=== PATIENT | female | born 1960 | race Caucasian/White ===

== ENCOUNTER → 2021-02-07 10:00 | Outpatient (CLI) | payer BC, SELFPAY ==
[2017-03-08 15:44] VITALS: BMI 28.3
--- NOTE | 2021-02-07 10:04 | RAD_ITS ---
STUDY: X-RAY - RIGHT SHOULDER REASON FOR EXAM: Female, 60 years old. Shoulder pain. TECHNIQUE: 4 view(s) of the shoulder. COMPARISON: None. FINDINGS: Mild generalized osteopenia. Mild arthrosis of the glenohumeral joint. Mild arthrosis of the AC joint. Normal acromion. Minimal sclerosis of the greater tuberosity of the humeral head. The soft tissue structures are unremarkable. Normal visualized pulmonary apex. RAD/Shoulder min 2 Views IMPRESSION: Osteopenia with osteoarthritic changes as described. No acute abnormality, periostitis or erosive changes. Electronically Signed: Jeff Holman MD at 10:30 EDT , Service support ,
== END ==
PROVIDERS: PCP Family Medicine; Referring Provider Family Medicine; Visit Provider Family Medicine
DX: M25.511 Pain in right shoulder (principal)
CPT/HCPCS: 73030

== ENCOUNTER 2021-03-21 11:30 | Outpatient (RCR) | payer BC, SELFPAY ==
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
--- NOTE | 2021-03-21 12:51 | HP.PTDCSUM ---
It has been my pleasure to treat KESHAV GREEN referred by Dr. Sourav James MD, with the diagnosis of OA for a total of 12 visit(s). Discharge Date: Please see the following information for a summary of their discharge status. Subjective: IT HAS DEFINATELY IMPROVED SINCE STARTING PT. PATIENT REPORTS SHE IS NOW ABLE TO REACH UP OVER HER STOVE TO GET THE SALT AND PEPPER AND SCRABLE EGGS WITH LESS PAIN. STATES DRIVING IS BETTER AND REACHING IN GENERAL. STATES SHE IS HAPPY WITH HER PROGRESS. STATES SHE CAN BATHE AND SHOWER NOW WITHOUT EXCRUTIATING PAIN. PATIENT REPORTS VACUUMING STILL CAUSES A LOT OF PAIN. ALSO HELPED LOWER A FURNACE OUT OF THE ATTIC YESTERDAY AND IT DIDN'T HURT. 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 SHE STATES SHE CAN'T DEAL WITH MORE MITESH'TS AT THIS TIME. STATES SHE WANTS TO CONTINUE WITH HER WIEGHTS AND BANDS AT HOME NOW. R Shoulder Pain Intensity (Out of 10): 0 % Improvement: 50 Objective/Function: UPON EXAM TODAY PATIENT DEMO'S INCREASED RIGHT SHLD GIRDLE STRENGTH FROM 3+/5 TO 4-/5 BUT STILL HAS INCREASED PAIN WITH TESTING ALL PLANES. SHE IS MAKING SLOW PROGRESS TOWARD ALL PT GOALS AND IS A GOOD CANDIDATE TO CONTINUE PT BASED ON PROGRESS MADE AND ROOM FOR FURTHER IMPROVEMENT BUT SHE STATES SHE CAN NOT FIT IT IN HER SCHEDULE AT THIS TIME AND WILL CONTINUE EX ON HER OWN. STATES SHE WILL CONTACT HER DOCTOR ABOUT PT AGAIN NEEDED. Goal 1:: DECREASE C/O R SHLD PAIN TO EASE ADL'S Goal Progress: Progressing Goal 2:: INCRASE PAINFREE ROM OF RIGHT UE TO EASE ADL'S Goal Progress: Progressing Goal 3:: INCREASE FUNCTIONAL STRENGTH OF RIGHT UE TO EASE ADL'S Goal Progress: Progressing Goal 4:: PATIENT WILL BE INDEP WITH A HEP FOR CONTINUED IMPROVEMENT ONCE FORMAL PHYSICAL THERAPY CONCLUDES Goal Progress: Progressing Plan: D/C TO HEP. If there are questions or concerns regarding this patient's physical therapy, please feel free to call me at [phone]. Thank you for the referral of this patient. Sincerely, Amee Marcus, PT, Cert MDT Balance/Gait/Functional tests - Balance/Special Test Scores Quick DASH Score: [phone]
== END 2021-03-21 19:00 | disposition home or self-care (01) ==
LOC: PT 11:30
PROVIDERS: PCP Family Medicine; Referring Provider Family Medicine; Visit Provider Family Medicine
DX: M19.90 Unspecified osteoarthritis, unspecified site (principal)
CPT/HCPCS: 97110; 97162; 97164

== ENCOUNTER → 2021-04-07 | Outpatient (CLI) | payer BC, SELFPAY | END | disposition home or self-care (01) | LOC: LABSPEC 16:41 | PROVIDERS: PCP Family Medicine; Visit Provider Family Medicine | DX: Z20.822 Contact with and (suspected) exposure to COVID-19 (principal) | CPT/HCPCS: 87635; U0005; U0003 ==

== ENCOUNTER → 2021-04-14 07:18 | Outpatient (CLI) | payer BC, SELFPAY ==
--- NOTE | 2021-04-14 07:20 | MRI_ITS ---
STUDY: MRI RIGHT SHOULDER REASON FOR EXAM: Right shoulder pain for approximately 2.5 years, decreased range of motion. TECHNIQUE: Standardized fat and water weighted pulse sequences were obtained in all 3 orthogonal planes. COMPARISON: Radiographs 02/07/2021. FINDINGS: There is mild supraspinatus tendinosis and a full-thickness tear of the distal anterior supraspinatus tendon (T2 coronal images 12, 13; T2 sagittal image 6) measuring approximately 1 cm in length and width. There is mild infraspinatus tendinosis (T2 coronal image 6) without discrete tendon tear. There is mild subscapularis tendinosis (T2 axial image 13) without discrete tendon tear. Normal teres minor tendon. Normal supraspinatus muscle. Normal infraspinatus muscle. Normal subscapularis muscle. Normal teres minor muscle. There is a small glenohumeral joint effusion. There is a small cyst in the lesser tuberosity. There is a tear with nonvisualization of the intracapsular long biceps tendon. There is tear/degeneration of the superior labrum (T2 coronal images 7-10). Normal capsulo- ligamentous complex. There is acromioclavicular arthrosis with mild hypertrophic changes (T2 sagittal image 17). There is a Type II morphology (curved), with a neutral orientation. There is a small volume of subacromial-subdeltoid bursal fluid. There is thickening of the coracoacromial ligament (T2 sagittal image 12). Normal deltoid muscle. Normal trapezius muscle. MRI/Upper Ext Joint Only(Routine) IMPRESSION: Full-thickness tear and mild tendinosis of the supraspinatus tendon. Mild infraspinatus and subscapularis tendinosis. Tear of the long biceps tendon. Tear/degeneration of the superior labrum. Acromioclavicular arthrosis. Thickening of the coracoacromial ligament. Glenohumeral joint and subacromial-subdeltoid bursal fluid. Electronically Signed: Harjit Carbajal MD at 11:44 EDT Tel , Service support ,
== END ==
PROVIDERS: PCP Family Medicine; Referring Provider Family Medicine; Visit Provider Family Medicine
DX: M25.511 Pain in right shoulder (principal)
CPT/HCPCS: 73221

== ENCOUNTER 2021-07-14 06:37 | Emergency (ER) | payer BC, SELFPAY ==
[2021-07-14 06:37] VITALS: BP 128/80; PULSE 88; RESP 16; TEMP 36.2; O2SAT 98; BMI 31.6
--- NOTE | 2021-07-14 06:58 | CT_ITS ---
STUDY: CT ABDOMEN AND PELVIS WITH CONTRAST REASON FOR EXAM: Female, 61 years old. Lower abdominal pain -- IV PO Contrast RADIATION DOSAGE (If Supplied By Facility): CTDIvol = ( 16.48 ) mGy, DLP = ( 977.32 ) mGycm TECHNIQUE: Transaxial images were obtained from the dome of the diaphragm to the symphysis pubis with oral contrast. Oral and amp; IV Gastrografin and amp; 100mL Isovue-370 was administered. Sagittal and coronal images were reconstructed. Individualized dose optimization techniques were used for this CT. COMPARISON: Comparison is made with prior examination dated 03/08/2017. FINDINGS: The visualized lung bases are unremarkable. The visualized portions of the heart are within normal limits. Normal liver. Normal gallbladder and extrahepatic biliary system. Normal spleen. Normal pancreas. Normal bilateral adrenal glands. Normal right kidney. Normal left kidney. Normal visualized stomach. Normal small intestine. There is diverticulosis, with thickening of the colon wall, and pericolonic inflammation changes consistent with mild degree of acute diverticulitis. The appendix is visualized and appears normal. There is scattered atherosclerotic calcification of the abdominal aorta, without a demonstrated aneurysm. Normal inferior vena cava. There is borderline retroperitoneal lymphadenopathy with enlarged nodes no greater than 10mm in the short axis diameter. Normal urinary bladder. Normal abdominal wall. Minimal anterolisthesis of L4 on L5 without spondylolysis. CT/Abdomen/Pelvis WITH Contrast IMPRESSION: Findings in keeping with noncomplicated acute sigmoid diverticulitis. Electronically Signed: Tavo Herrmann MD at 9:08 EST , Service support ,
--- NOTE | 2021-07-14 06:59 | ED.VIS.GI ---
HPI HPI - GI History of Present Illness Chief Complaint: Abd Pain Informant: patient and spouse/S.O. Narrative Narrative: 61-year-old female presents the emergency room with abdominal pain. Patient states she has not been able to have a bowel movement for the past several days and believes she has a bowel obstruction. She states that she has a hernia but is unsure where it is located. She notes nausea but no vomiting. She states she is not having any flatus. today. She reports being unable to sit up. She states she has a fever of 98 degrees because she is typically 95 degrees. PFSH PFSH Home Medications ciprofloxacin HCl 500 mg PO BID #20 tablet 07/14/21 [Rx Last Taken Unknown] hydrocodone-acetaminophen 1 tab PO Q6H PRN PRN 3 Days #12 tablet 07/14/21 [Rx Last Taken Unknown] metronidazole 500 mg PO Q8H #30 tab 07/14/21 [Rx Last Taken Unknown] ondansetron 4 mg PO Q6H PRN PRN #15 tab 07/14/21 [Rx Last Taken Unknown] Allergy/AdvReac Type Severity Reaction Status Date / Time aspirin Allergy Other Verified 07/14/21 06:41 meperidine HCl [From Demerol] Allergy Other Verified 07/14/21 06:41 Sulfa (Sulfonamide Allergy Hives Verified 07/14/21 06:41 Antibiotics) Surgical History (Updated 07/14/21 @ 07:[address] Jae Wagner DO) History of D&C Social History (Updated 07/14/21 @ 07:[address] Jae Wagner DO) Smoking Status: Current every day smoker tobacco type: cigarettes substance use type: does not use ROS ROS ED Constitutional Constitutional ED: Reports fever(s); Denies chills or weight loss Eyes Eyes: Denies change in vision or diplopia ENT ENT ED: Denies ear pain, rhinorrhea or sore throat Cardiovascular Cardiovascular: Denies chest pain, orthopnea, palpitations or racing heartbeat Respiratory/Chest Respiratory/Chest: Denies cough, dyspnea or orthopnea Gastrointestinal Gastrointestinal: Reports abdominal pain, constipation and nausea; Denies diarrhea or vomiting Genitourinary Genitourinary ED: Denies dysuria, hematuria or urinary frequency Musculoskeletal Musculoskeletal: Denies arthralgias or myalgias Integumentary Denies abscess or rash Neurologic Neurologic: Denies headache(s) or weakness Psychiatric Psychiatric: Denies anxiety, depression, suicidal ideation or suicidal thoughts Endocrine Endocrinology: Denies polydipsia, polyphagia or polyuria Allergic/Immunologic Allergic/Immunologic ED: Denies mouth swelling, tongue swelling or urticaria EXAM Physical Exam Const Vital Signs: 07/14/21 06:37 Temperature 97.1 F L Temperature Source Temporal Pulse Rate 88 Respiratory Rate 16 Blood Pressure 128/80 H Blood Pressure Mean 96 Pulse Ox 98 Oxygen Delivery Method Room Air Positive well nourished, well developed and obese General Appearance ED: well developed Nutritional Appearance: obese HEENT Reports normocephalic, head/scalp atraumatic, TM's clear and moist mucous membranes normocephalic and atraumatic Tympanic Membrane ED: Yes TM's clear Eyes PERRL and EOMs intact bilaterally Neck no lymphadenopathy, supple and no JVD Resp normal respiratory effort and clear to auscultation bilaterally Cardio regular rate, regular rhythm and no murmurs GI normal to inspection, nondistended, normoactive bowel sounds Auscultation: hypoactive bowel sounds Palpation: tender and guarding Back/Spine no CVA tenderness and normal ROM Extremity normal to inspection General Extremety ED: Negative for edema General Extremity: Negative for edema Neuro oriented x3 and CN's II-XII intact bilaterally Sensorium / Orientation: alert Motor Exam: strength 5/5 throughout Psych mental status grossly normal Mood & Affect: Negative for depressed or tearful Skin no rashes or lesions noted and no wounds MDM MDM MDM Narrative Medical decision making narrative: Patient is elevated white count 11.3. Lactic acid 1.7. Urinalysis with no overt infection. CT of the abdomen pelvis with oral and IV contrast revealed uncomplicated sigmoid diverticulitis. Patient has received morphine and Zofran as well as fluids. I will discharge her home with Cipro and Flagyl as well as [place] and Zofran. Return if worsening or concerns follow-up with primary care Lab Data Attestation: I reviewed the patient's lab results. Labs: Laboratory Results - last 24 hr 07/14/21 07/14/21 07/14/21 06:43 06:43 07:10 WBC 11.3 H RBC 4.78 Hgb 14.7 Hct 43.2 MCV 90.4 MCH 30.8 MCHC 34.0 RDW Std Deviation 40.9 RDW Coeff of Gumaro 12.4 Plt Count 252 MPV 10.3 Immature Gran % (Auto) 0.300 Neut % (Auto) 75.7 H Lymph % (Auto) 12.3 L [place] % (Auto) 10.9 H Eos % (Auto) 0.6 Baso % (Auto) 0.2 Absolute Neuts (auto) 8.6 H Absolute Lymphs (auto) 1.39 Nucleated RBC % 0 Sodium 136 Potassium 3.8 Chloride 100 Carbon Dioxide 27.0 Anion Gap 9 BUN 12 Creatinine 0.76 Estim Creat Clear Calc 66.28 Est GFR (MDRD) Af Amer 99 Est GFR (MDRD) Non-Af 82 BUN/Creatinine Ratio 15.8 Glucose 132 H Lactic Acid 1.7 Calcium 9.2 Total Bilirubin 0.70 AST 11 L ALT 19 Alkaline Phosphatase 90 Total Protein 7.6 Albumin 3.7 Globulin 3.9 Albumin/Globulin Ratio 0.9 Lipase 63 L Urine Color Urine Clarity Urine pH Ur Specific [place] Urine Protein Urine Glucose (UA) Urine Ketones Urine Occult Blood Urine Nitrite Urine Bilirubin Urine Urobilinogen Ur Leukocyte Esterase Urine RBC Urine WBC Ur Squamous Epith Cells Urine Bacteria Urine Mucus 07/14/21 07:26 WBC RBC Hgb Hct MCV MCH MCHC RDW Std Deviation RDW Coeff of [place] Plt Count MPV Immature Gran % (Auto) Neut % (Auto) Lymph % (Auto) [place] % (Auto) Eos % (Auto) Baso % (Auto) Absolute Neuts (auto) Absolute Lymphs (auto) Nucleated RBC % Sodium Potassium Chloride Carbon Dioxide Anion Gap BUN Creatinine Estim Creat Clear Calc Est GFR (MDRD) Af Amer Est GFR (MDRD) Non-Af BUN/Creatinine Ratio Glucose Lactic Acid Calcium Total Bilirubin AST ALT Alkaline Phosphatase Total Protein Albumin Globulin Albumin/Globulin Ratio Lipase Urine Color Yellow Urine Clarity Sl. Cloudy Urine pH 6.5 Ur Specific [place] 1.015 Urine Protein Negative Urine Glucose (UA) Normal Urine Ketones Negative Urine Occult Blood 10 H Urine Nitrite Negative Urine Bilirubin Negative Urine Urobilinogen Normal Ur Leukocyte Esterase Negative Urine RBC 0 SEEN Urine WBC 0-5 SEEN Ur Squamous Epith Cells 5-10 SEEN Urine Bacteria 1+ Urine Mucus RARE Radiography Diagnostic Testing: Clinical Impression(s) from Imaging Studies Abdomen/Pelvis CT 07/14/21 06:58 IMPRESSION: Findings in keeping with noncomplicated acute sigmoid diverticulitis. Electronically Signed: Tavo Herrmann MD at 9:08 EST , Service support , Discharge Plan Triage Chief Complaint: Abd Pain ED Provider: Jae Wagner Dx/Rx/DC Orders Clinical Impression: Diverticulitis of sigmoid colon Instructions: ED Diverticulitis Prescriptions: New hydrocodone-acetaminophen [hydrocodone-acetaminophen] 1 TABLET tablet 1 tab PO Q6H PRN PRN (Reason: Pain) 3 Days Qty: 12 RF: 0 metronidazole [metronidazole] 500 MG tablet 500 mg PO Q8H Qty: 30 RF: 0 ciprofloxacin HCl [ciprofloxacin HCl] 500 MG tablet 500 mg PO BID Qty: 20 RF: 0 ondansetron [ondansetron] 4 MG tablet 4 mg PO Q6H PRN PRN (Reason: Nausea) Qty: 15 RF: 0 Primary Care Provider: Sourav James Referrals: Sourav James MD [Primary Care Provider] - 1-2 Weeks Disposition Disposition: Home, Self Care
[2021-07-14 07:08] LABS: Absolute Lymphocyte Count 1.39 X10^3/uL (0.83-4.51); Absolute Neutrophil Count 8.6 X10^3/uL (2.0-7.7); Basophil# 0.02 X10^3/uL; Basophil% 0.2 % (0-1); Eosinophil# 0.07 X10^3/uL; Eosinophils% 0.6 % (0-5); Hematocrit 43.2 % (37-47); Hemoglobin 14.7 g/dL (12.0-15.0); Lymphocyte # 1.39 X10^3/ul (0.83-4.51); Lymphocyte % 12.3 % (19-41); Mean Corpuscular Hgb 30.8 pg (27.0-32.0); Mean Corpuscular Volume 90.4 fL (81-99); Mean Platelet Vol. 10.3 fl (6.2-12.0); Monocyte# 1.23 X10^3/uL; Monocyte% 10.9 % (0-10); NRBC Flagged by Analyzer 0 % (0-5); Neutrophil # 8.58 X10^3/uL (2.7-7.7); Neutrophil % 75.7 % (47-70); Platelet Count 252 K/mm3 (150-450); RBC Distribution Width CV 12.4 % (11.6-14.6); RBC Distribution Width SD 40.9 fl (35.1-43.9); Red Blood Count 4.78 M/mm3 (4.2-5.4); White Blood Count 11.3 K/mm3 (4.4-11.0)
[2021-07-14] MEDS: Morphine 4 MG/ML Syringe IV (07:19)
[2021-07-14] MEDS: Ondansetron 4 MG/2 ML Vial IV (07:19)
[2021-07-14] MEDS: 0.9% Normal Saline 1,000 ML 125 ML IV (07:19)
[2021-07-14 07:25] LABS: ALB/GLOB Ratio 0.9 RATIO (0.9-2.4); AST(SGOT) 11 U/L (15-37); Alanine Aminotransfer ALT/SGPT 19 U/L (13-56); Albumin, Serum 3.7 g/dL (3.2-5.0); Alkaline Phosphatase 90 U/L (45-117); Anion Gap 9 (5-15); BUN 12 mg/dL (7-18); BUN/Creat Ratio 15.8 RATIO (10-20); Calcium,Total 9.2 mg/dL (8.5-10.1); Chloride 100 mmol/L (98-107); Creatinine, Serum 0.76 mg/dL (0.55-1.02); EST Glomerular Filtration Rate 82 mL/min (>60); Est Glom Filt Rate - Afr Amer 99 mL/min (>60); Estimated Creatinine Clearance 66.28 ml/min; Globulin 3.9 g/dL (2.2-4.2); Glucose 132 mg/dL (74-106); Lipase 63 U/L (73-393); Potassium 3.8 mmol/L (3.5-5.1); Protein, Total 7.6 g/dL (6.4-8.2); Sodium Level 136 mmol/L (136-145)
[2021-07-14 07:38] LABS: Red Blood Cells-Urine 0 SEEN /hpf (0-5)
[2021-07-14 07:47] LABS: Lactic Acid 1.7 mmol/L (0.4-1.9)
[2021-07-14 08:09] LABS: Color, Urine Yellow (Yellow); Glucose, Dipstick Normal (Normal); Ketone-Dipstick Negative (Negative); Leukocyte Esterase-Dipstick Negative /ul (Negative); Nitrite-Dipstick Negative (Negative); Occult Blood-Urine 10 /ul (Negative); Protein-Dipstick Negative (Negative); Specific Gravity, Urine 1.015 (1.002-1.030); Urine Bilirubin Dipstick Negative (Negative); Urine Clarity Sl. Cloudy (Clear); Urine Urobilinogen Normal (Normal); Urine pH 6.5 (5.0 - 8.0)
[2021-07-14 08:21] LABS: Bacteria 1+ /hpf (None Seen); Mucous, Urine RARE /hpf (<or=2+); Squamous Epithelial Cells - UA 5-10 SEEN /hpf (5-10); White Blood Cells 0-5 SEEN /hpf (0-5)
[2021-07-14 10:30] VITALS: BP 128/74; PULSE 81; RESP 17; O2SAT 95
== END 2021-07-14 10:31 | disposition home or self-care (01) ==
PROVIDERS: Emergency Provider Emergency Medicine; PCP Family Medicine
DX: K57.32 Diverticulitis of large intestine without perforation or abscess without bleeding (principal); E66.9 Obesity, unspecified; F17.210 Nicotine dependence, cigarettes, uncomplicated
CPT/HCPCS: 74177; 80053; 81001; 83605; 83690; 85025; 96361; 96374; 96375; 99284; J7030; Q9967; A4216; J2405

== ENCOUNTER → 2021-07-28 15:26 | Outpatient (CLI) | payer BC, SELFPAY | PROVIDERS: PCP Family Medicine; Referring Provider Family Medicine; Visit Provider Family Medicine | DX: Z86.16 Personal history of COVID-19 (principal) | CPT/HCPCS: 36415; 86769 ==

== ENCOUNTER → 2023-01-02 | Outpatient (CLI) | payer BC, SELFPAY ==
--- NOTE | 2023-01-02 17:20 | RAD_ITS ---
STUDY: XR Ankle Min 3 Views REASON FOR EXAM: Female, 62 years old. ANKLE PAIN TECHNIQUE: XR Ankle Min 3 Views RIGHT COMPARISON: None. FINDINGS: Normal visualized distal tibia and fibula. Normal medial and lateral malleoli. Normal tibiotalar articulation and ankle mortise. The visualized subtalar, talonavicular, calcaneocuboid and tarsal articulations are normal. There is a plantar calcaneal spur. There is soft tissue swelling around the ankle. RAD/Ankle min 3 Views IMPRESSION: There is soft tissue swelling. Electronically Signed: Yimi Kumar MD at 17:58 EDT ,
== END | disposition home or self-care (01) ==
LOC: MTRAD 17:14
PROVIDERS: PCP Family Medicine; Referring Provider Physician Assistant Surgical; Visit Provider Physician Assistant Surgical
DX: S96.911A Strain of unspecified muscle and tendon at ankle and foot level, right foot, initial encounter (principal)
CPT/HCPCS: 73610

== ENCOUNTER 2023-10-04 18:45 | Emergency (ER) | payer BC, SELFPAY ==
[2023-10-04] VITALS (8 sets, daily range): BP systolic 111–142; BP diastolic 66–91; PULSE 83–113; RESP 17–27; TEMP 36.8–37.6; O2SAT 94–99; BMI 33.3
--- NOTE | 2023-10-04 18:59 | EKG12_ITS ---
Test Reason : cp Blood Pressure : / mmHG Vent. Rate : 085 BPM Atrial Rate : 085 BPM P-R Int : 152 ms QRS Dur : 078 ms QT Int : 354 ms P-R-T Axes : 037 050 046 degrees QTc Int : 421 ms Normal sinus rhythm Normal ECG Confirmed by KACY SMALLWOOD, MEGAN ([id number]), supervising editor news reel WALE [email or web address] ([id number]) on 10/05/2023 1:05:10 PM Referred By: Confirmed By:MEGAN WOODRUFF MD
--- NOTE | 2023-10-04 19:00 | ED.VIS.CHEST ---
HPI History of Present Illness Chief Complaint: Chest Pain Informant: patient Onset/Context/Timing Onset: Today Narrative Narrative: Patient presents secondary left-sided chest pain. She reports having cold-like symptoms for the last several weeks intermittently. This afternoon she developed pinching and squeezing pain under her left breast. She states she has had intermittent shortness of breath for the last several weeks. She denies any personal history of cardiac disease but does have family history. PFSH PFSH Home Medications ciprofloxacin HCl 500 mg tablet 500 mg PO BID #20 TABLETS 07/14/21 [Rx Last Taken Unknown] hydrocodone-acetaminophen 5-325mg 5mg-325mg 1 tab PO Q6H PRN PRN Pain 3 days #12 TABLETS 07/14/21 [Rx Last Taken Unknown] metronidazole 500 mg tablet 500 mg PO Q8H #30 tabs 07/14/21 [Rx Last Taken Unknown] ondansetron 4 mg disintegrating tablet 4 mg PO Q6H PRN PRN Nausea #15 tabs 07/14/21 [Rx Last Taken Unknown] prednisone 20 mg tablet 40 mg (2 x 20 mg) PO DAILY #8 tabs 10/04/23 [Rx Last Taken Unknown] Allergy/AdvReac Type Severity Reaction Status Date / Time aspirin Allergy Other Verified 10/04/23 18:46 meperidine HCl [From Demerol] Allergy Other Verified 10/04/23 18:46 Sulfa (Sulfonamide Allergy Hives Verified 10/04/23 18:46 Antibiotics) Surgical History History of D&C Social History Smoking Status: Current every day smoker tobacco type: cigarettes substance use type: does not use ROS ROS ED Constitutional Constitutional ED: Reports fever(s) and subjective; Denies chills Eyes Eyes: Denies change in vision or discharge from eye(s) ENT ENT ED: Denies discharge from eye(s), rhinorrhea or sore throat Cardiovascular Cardiovascular: Reports chest pain; Denies palpitations Respiratory/Chest Respiratory/Chest: Reports cough and dyspnea Gastrointestinal Gastrointestinal: Denies abdominal pain, nausea or vomiting Genitourinary Genitourinary ED: Denies dysuria Musculoskeletal Musculoskeletal: Denies back pain or extremity pain Integumentary Denies Abrasions or rash Neurologic Neurologic: Denies headache(s) or weakness Allergic/Immunologic Allergic/Immunologic ED: Denies lip swelling or urticaria EXAM Physical Exam Const Vital Signs: 10/04/23 18:46 10/04/23 18:54 10/04/23 18:49 Temperature 98.2 F 98.2 F Temperature Source Temporal Temporal Pulse Rate 92 92 Respiratory Rate 22 H 22 H Respiratory Effort Short of Breath Respiratory Pattern Tachypnea Blood Pressure 142/91 H 142/91 H Blood Pressure Mean 108 108 Pulse Ox 99 99 Oxygen Delivery Method Room Air Room Air 10/04/23 19:00 10/04/23 19:46 10/04/23 20:00 Temperature Temperature Source Pulse Rate 83 Respiratory Rate 18 Respiratory Effort Respiratory Pattern Blood Pressure 111/83 H Blood Pressure Mean 92 Pulse Ox 97 97 Oxygen Delivery Method Room Air Room Air Room Air 10/04/23 21:00 10/04/23 21:00 Temperature 99.3 F H Temperature Source Oral Pulse Rate 93 113 H Respiratory Rate 27 H 17 Respiratory Effort Respiratory Pattern Blood Pressure 125/70 H 125/70 H Blood Pressure Mean 88 88 Pulse Ox 94 96 Oxygen Delivery Method Room Air Room Air Positive well nourished and well developed General Appearance ED: well developed HEENT Reports moist mucous membranes Eyes EOMs intact bilaterally Chest Wall inspection of chest normal and palpation of chest normal Resp normal respiratory effort and clear to auscultation bilaterally Cardio regular rate and regular rhythm GI soft to palpation and non-tender Extremity normal to inspection Neuro oriented x3 Psych Mood & Affect: anxious Skin no rashes or lesions noted Heart Score History: Slightly/Non-Suspicious ECG: Normal Age: >45 - <65 years Risk Factors: No Risk Factors Troponin: </= Normal Limit Score: 1 MDM MDM MDM Narrative Medical decision making narrative: Patient placed on playground monitor. EKG obtained to evaluate for cardiac arrhythmia/ischemia. IV line initiated. Labwork obtained to evaluate for leukocytosis, anemia, and electrolyte derangement. Chest x-ray obtained to evaluate for acute lung pathology, cardiac size, or mediastinal abnormality. Swab for COVID, influenza, and RSV obtained. Patient does have an allergy to aspirin. She is given morphine and Zofran for pain. History & Record Review Discussion w/independent historian: Patient Lab Data Attestation: I reviewed the patient's lab results. Labs: Laboratory Results - last 24 hr 10/04/23 10/04/23 18:57 21:09 WBC 5.2 RBC 4.62 Hgb 13.9 Hct 42.1 MCV 91.1 MCH 30.1 MCHC 33.0 RDW Std Deviation 41.0 RDW Coeff of Gumaro 12.4 Plt Count 180 MPV 10.3 Immature Gran % (Auto) 0.800 Neut % (Auto) 78.7 H Lymph % (Auto) 7.[address] % (Auto) 11.9 H Eos % (Auto) 1.3 Baso % (Auto) 0.2 Absolute Neuts (auto) 4.1 Absolute Lymphs (auto) 0.37 L Nucleated RBC % 0 D-Dimer Quant (PE/DVT) 1.48 H* Sodium 136 Potassium 3.9 Chloride 105 Carbon Dioxide 27.0 Anion Gap 4 L BUN 15 Creatinine 0.68 Estim Creat Clear Calc 90.12 Est GFR (MDRD) Af Amer 112 Est GFR (MDRD) Non-Af 93 BUN/Creatinine Ratio 22.1 H Glucose 93 Calcium 9.4 Troponin I High Sens 3 5 Radiography Chest X-Ray - ED: 1 View, Read by ED Physician, Normal, Heart, Lungs, Mediastinum and No Infiltrates Diagnostic Testing: Clinical Impression(s) from Imaging Studies Chest X-Ray 10/04/23 19:14 IMPRESSION: No acute cardiopulmonary pathology Electronically Signed: Joe Ochoa MD at 19:40 EST , Chest CTA 10/04/23 19:53 IMPRESSION: ASHD without evidence for aortic aneurysm. No acute cardiopulmonary pathology. No evidence for pulmonary embolus Incidental finding of bilateral tiny thyroid nodules which may be better assessed with ultrasound if indicated Electronically Signed: Joe Ochoa MD at 20:29 EST , EKG Initial EKG: Attestation: I personally reviewed and interpreted this EKG as follows: Interpretation: Sinus Rhythm (Sinus 85 with no acute ischemia.) Treatment and Re-Evaluation :: CBC was normal white count 5.2 with a hemoglobin of 13.9. 78% neutrophils noted. Chemistry studies unremarkable. Troponin is normal at 3. D-dimer is elevated at 1.48. Swab for influenza and RSV is negative, however swab for COVID is positive. Portable chest x-ray per my interpretation feels no acute findings. Radiology interpretation reviewed and agrees. Given her elevated D-dimer, patient is sent for CTA of the chest. This reveals no evidence of pulmonary embolism. Patient initially declined morphine. At this time she will be given a dose of Toradol. 2-hour repeat troponin returns at 5 for a delta of 2. On repeat evaluation patient resting comfortably. She does have evidence of pleurisy with sharp chest pain worse with a deep breath. I will treat her with a short course of prednisone to help with pleuritic irritation. She will continue supportive care for her COVID. Discharge Plan Triage Chief Complaint: Chest Pain ED Provider: Peri Powell Dx/Rx/DC Orders Clinical Impression: COVID-19, Pleurisy Instructions: Coronavirus Disease 2019 (COVID-19): Overview, Coronavirus Disease 2019 (COVID-19): Caring for Yourself or Others, ED Pleurisy Prescriptions: New prednisone 20 mg tablet 40 mg PO DAILY Qty: 8 0RF No Action hydrocodone-acetaminophen [hydrocodone-acetaminophen] 1 TABLET tablet 1 tab PO Q6H PRN PRN (Reason: Pain) 3 Days Qty: 12 0RF metronidazole [metronidazole] 500 MG tablet 500 mg PO Q8H Qty: 30 0RF ciprofloxacin HCl [ciprofloxacin HCl] 500 MG tablet 500 mg PO BID Qty: 20 0RF ondansetron [ondansetron] 4 MG tablet 4 mg PO Q6H PRN PRN (Reason: Nausea) Qty: 15 0RF Primary Care Provider: Sourav James Referrals: Sourav James MD [Primary Care Provider] - 1-2 Weeks Disposition Disposition: Home, Self Care
[2023-10-04] MEDS: 0.9% Normal Saline (1000mL) 1,000 ML 150 ML IV (19:04)
[2023-10-04 19:10] LABS: Absolute Lymphocyte Count 0.37 X10^3/uL (0.83-4.51); Absolute Neutrophil Count 4.1 X10^3/uL (2.0-7.7); Basophil# 0.01 X10^3/uL; Basophil% 0.2 % (0-1); Eosinophil# 0.07 X10^3/uL; Eosinophils% 1.3 % (0-5); Hematocrit 42.1 % (37-47); Hemoglobin 13.9 g/dL (12.0-15.0); Lymphocyte # 0.37 X10^3/ul (0.83-4.51); Lymphocyte % 7.1 % (19-41); Mean Corpuscular Hgb 30.1 pg (27.0-32.0); Mean Corpuscular Volume 91.1 fL (81-99); Mean Platelet Vol. 10.3 fl (6.2-12.0); Monocyte# 0.62 X10^3/uL; Monocyte% 11.9 % (0-10); NRBC Flagged by Analyzer 0 % (0-5); Neutrophil # 4.11 X10^3/uL (2.7-7.7); Neutrophil % 78.7 % (47-70); POSITIVE DIFFERENTIAL YES; Platelet Count 180 K/mm3 (150-450); RBC Distribution Width CV 12.4 % (11.6-14.6); Red Blood Count 4.62 M/mm3 (4.2-5.4); White Blood Count 5.2 K/mm3 (4.4-11.0)
--- NOTE | 2023-10-04 19:14 | RAD_ITS ---
STUDY: X-RAY CHEST REASON FOR EXAM: Female, 63 years old. chest pain TECHNIQUE: AP portable COMPARISON: None. FINDINGS: The lungs are clear and expanded. There is no demonstrated pleural abnormality. Normal size heart. Normal mediastinum and adrianna. Normal visualized pulmonary arteries. Normal visualized aortic arch and descending thoracic aorta. Dorsal spine demonstrates mild degenerative change. Normal visualized ribs, clavicles, and shoulders. There is no demonstrated abnormality of the visualized soft tissue structures of the upper abdomen. RAD/Chest 1 View (Portable) IMPRESSION: No acute cardiopulmonary pathology Electronically Signed: Joe Ochoa MD at 19:40 EST ,
[2023-10-04 19:28] LABS: Anion Gap 4 (5-15); BUN 15 mg/dL (7-18); BUN/Creat Ratio 22.1 RATIO (10-20); Calcium,Total 9.4 mg/dL (8.5-10.1); Chloride 105 mmol/L (98-107); Creatinine, Serum 0.68 mg/dL (0.55-1.02); EST Glomerular Filtration Rate 93 mL/min (>60); Est Glom Filt Rate - Afr Amer 112 mL/min (>60); Estimated Creatinine Clearance 90.12 ml/min; Glucose 93 mg/dL (74-106); Potassium 3.9 mmol/L (3.5-5.1); Sodium Level 136 mmol/L (136-145); Troponin-I HS (w/2H Reflex) 3 pg/mL (3.0-54.0)
[2023-10-04 19:53] LABS: D-Dimer Quantitative (DVT/PE) 1.48 FEU/ug/m (0.27-0.49)
--- NOTE | 2023-10-04 19:53 | CT_ITS ---
STUDY: CTA CHEST REASON FOR EXAM: Female, 63 years old. CP, elevated d-dimer RADIATION DOSAGE (If Supplied By Facility): CTDIvol = ( 8.35 ) mGy, DLP = ( 304.31 ) mGycm TECHNIQUE: The examination was performed with the intravenous administration of IV 100mL [id number]-[id number]. Post-processing of the angiographic images was performed, with multiplanar reformation and 3D reconstruction. Individualized dose optimization techniques were used for this CT. COMPARISON: None. FINDINGS: Normal enhancement of the main pulmonary artery and right and left pulmonary arteries. Normal enhancement of the bilateral peripheral pulmonary arteries. There is no demonstrated pulmonary embolism. Mild atherosclerotic change of the aorta without evidence for aneurysm. There is no demonstrated aortic dissection. Normal heart and pericardium. There is mild multivessel coronary artery calcium Normal mediastinum. Normal hilar regions. Tiny bilateral thyroid nodules Normal visualized trachea and bronchi. The lungs are well expanded. Normal pulmonary parenchyma. Normal pleura. Small bilateral axillary nodes likely benign Dorsal spine demonstrates degenerative change Nonspecific fatty infiltrated liver CT/CTA Chest W/WO Contrast IMPRESSION: ASHD without evidence for aortic aneurysm. No acute cardiopulmonary pathology. No evidence for pulmonary embolus Incidental finding of bilateral tiny thyroid nodules which may be better assessed with ultrasound if indicated Electronically Signed: Joe Ochoa MD at 20:29 EST ,
[2023-10-04] MEDS: Ketorolac 15 MG/ML Vial IV (20:35)
[2023-10-04 21:07] LABS: Reflex Troponin-HS? (from REC) Y
[2023-10-04 21:33] LABS: Troponin-I HS 5 pg/mL (3.0-54.0)
[2023-10-04] MEDS: Acetaminophen 500 MG Tablet 1000 MG PO (22:06)
== END 2023-10-04 22:18 | disposition home or self-care (01) ==
PROVIDERS: Emergency Provider Emergency Medicine; PCP Family Medicine; Visit Provider Emergency Medicine
DX: U07.1 COVID-19 (principal); R09.1 Pleurisy; F17.210 Nicotine dependence, cigarettes, uncomplicated
CPT/HCPCS: 71045; 71275; 80048; 84484; 85025; 85379; 87631; 93005; 96361; 96374; 96375; 99284; J7030; Q9967; A4216; J2405

== ENCOUNTER → 2023-10-18 | Outpatient (CLI) | payer BC, SELFPAY ==
[2023-10-18 13:31] LABS: Cholesterol 196 mg/dL (200); High Density Lipoprotein 43 mg/dL; Triglycerides 127 mg/dL; Very Low Density Lipoprotein 25 mg/dL (5-40)
[2023-10-18 16:05] LABS: Hemoglobin A1c 5.7 % (3.8-5.6)
== END | disposition home or self-care (01) ==
LOC: MTLAB 09:36
PROVIDERS: PCP Family Medicine; Referring Provider Family Medicine; Visit Provider Family Medicine
DX: I70.90 Unspecified atherosclerosis (principal)
CPT/HCPCS: 36415; 80061; 83036

== ENCOUNTER → 2024-06-03 | Outpatient (CLI) | payer MEDICARE, SELFPAY ==
--- NOTE | 2024-06-03 13:03 | BI_ITS ---
MAMMOGRAPHY - BILATERAL SCREENING REASON FOR EXAM: Female, 64 years old. Routine annual screening examination. PERTINENT HISTORY: Aunt with breast cancer. Remote right excisional breast biopsy. TECHNIQUE: Digital bilateral breast gaye (3D mammographic acquisition) in the CC and MLO projections. 2-D mediolateral oblique (MLO) and craniocaudad (CC) views of both breasts were obtained. CAD: Full Field Digital Mammography with Computer Added Detection was performed. COMPARISON: Comparison is made with prior study June 03, 2015. FINDINGS: Breast Composition: There are scattered areas of fibroglandular density. There are no dominant masses or suspicious calcifications. Stable small benign-appearing bilateral axillary lymph nodes. No other significant abnormalities are identified. There has been no significant change since the prior study. BI/SCRN MAMM (CAD)W/GAYE BILAT IMPRESSION: Stable bilateral screening mammogram. Yearly follow-up mammogram recommended. (A) ASSESSMENT CATEGORY: BIRADS Category 2: Benign. A letter regarding these results will be sent to the patient by the facility within 30 days. Approximately 10% of breast cancers are not detected by mammography. A normal mammogram should not delay biopsy of a clinically suspicious abnormality. [id number] Electronically Signed: Tavo Herrmann MD at 14:13 EDT ,
--- NOTE | 2024-06-03 13:07 | BD_ITS ---
STUDY: DUAL ENERGY X-RAY ABSORPTIOMETRY / DXA REASON FOR EXAM: Female, 64 years old. [id number] TECHNIQUE: Bone Mineral Density (BMD) measurements of lumbar spine and bilateral hips were obtained. COMPARISON: Comparison is made with prior study June 03, 2015. FINDINGS: Lumbar Spine (L1-L4): g/cm2 (0.852) / T-score (-1.8) / Z-score (0.0) Findings are suggestive of osteopenia with a moderate fracture risk. Left Femur Total: g/cm2 (0.931) / T-score (-0.1) / Z-score (1.1) Left Femoral Neck: g/cm2 (0.741) / T-score (-1.0) / Z-score (0.5) Right Femur Total: g/cm2 (0.942) / T-score (0.0) / Z-score (1.2) Right Femoral Neck: g/cm2 (0.778) / T-score (-0.6) / Z-score (0.9) The T-Scores on the most recent prior examination were: Lumbar Spine (L1-L4): There has been worsening of bone density since the previous examination. Left Femur Total: which represents a worsening of 8.2%. Right Femur Total: which represents a worsening of 7.3%. BD/Dexa Bone Density Study IMPRESSION: The patient is considered osteopenic as outlined below according to World Atul Organization (WHO) criteria with a moderate fracture risk. There has been worsening of bone density since the previous examination. Reference Information: The T-score is the number of standard deviations above or below the standard which is normal for young adults at their peak bone mineral density. The World Health Organization (WHO) interprets the T-scores as follows: Above -1 Normal bone density Between -1 and -2.5 Osteopenia Equal to / or below -2.5 Osteoporosis As a practical clinical guideline, osteopenia may be graded as follows: Mild -1 through -1.5 Moderate -1.6 through -2.0 Severe -2.1 through -2.4 The Z-score is the number of standard deviations above or below age-matched controls. A Z-score of less than -1.5 would be considered abnormal. References: 1. NIH Osteoporosis and Related Bone Diseases www osteo.org 2. International Society for Clinical Densitometry www iscd.org 3. National Osteoporosis Foundation www nof.org Electronically Signed: Tavo Herrmann MD at 14:06 EDT ,
== END | disposition home or self-care (01) ==
LOC: OPBD 13:02
PROVIDERS: PCP Family Medicine; Referring Provider Family Medicine; Visit Provider Family Medicine
DX: Z12.31 Encounter for screening mammogram for malignant neoplasm of breast (principal); Z78.0 Asymptomatic menopausal state
CPT/HCPCS: 77063; 77067; 77080

== ENCOUNTER → 2025-05-06 | Outpatient (CLI) | payer MEDICARE, SELFPAY ==
--- OUTSIDE RECORDS SUMMARY | 2025-05-06 18:23 | XMS RPT_ITS | CCD ---
Author Organization [facility] Care Team Providers Care Frame Polisher Name Role Phone Dr. Sourav James Primary Care Provider Dr. Sourav James Referring Provider [phone] PRUDENCE Moody Attending Provider [phone] Sourav James Primary Care Unavailable Sourav James Attending Unavailable Sourav James Referring Unavailable Peri Powell Attending Unavailable Sourav James Primary Care Unavailable Sourav James Primary Care Unavailable Sourav James Attending Unavailable Sourav James Referring Unavailable Allergies Allergy Classification Reported Allergen(s) Allergy Type Date of Onset Reaction(s) Facility (3 sources) Aspirin Drug Allergy 3 [facility] (4 sources) Meperidine; Translations: [meperidine HCl] Drug Allergy 3 [facility] (3 sources) Sulfonamides (Antibiotic) Allergy to substance 3 [facility] (1 source) Aspirin Drug Allergy 4 [facility] (1 source) Sulfonamides (Antibiotic) Drug allergy (disorder) 4 [facility] Medications Current Medications Medication Drug Class(es) Dates Sig (Normalized) Sig (Original) acetaminophen 325 mg / HYDROcodone bitartrate 5 mg oral tablet (3 sources) Opioid Agonist Start: 07-14-2021 take 1 tablet by mouth every six hours as needed Hydrocodone-Acetam inophen Active 1 TABLET PO EVERY 6 HOURS NEEDED 12 July 14, 2021 ciprofloxacin 500 mg oral tablet (3 sources) Quinolone Antimicrobial Start: 07-14-2021 take 500 mg by mouth twice daily Ciprofloxacin Hcl Active 500 MG PO TWICE A DAY July 14, 2021 1:00am metroNIDAZOLE 500 mg oral tablet (3 sources) Nitroimidazole Antimicrobial Start: 07-14-2021 take 500 mg by mouth every eight hours Metronidazole Active 500 MG PO Q8H July 14, 2021 1:00am ondansetron 4 mg disintegrating oral tablet (3 sources) Serotonin-3 Receptor Antagonist Start: 07-14-2021 take 4 mg by mouth every six hours as needed Ondansetron Active 4 MG PO EVERY 6 HOURS NEEDED July 14, 2021 10:59am predniSONE 20 mg oral tablet (2 sources) Start: 10-04-2023 take 40 mg by mouth once daily Prednisone Active 40 MG PO DAILY October 04, 2023 1:00am Completed/Discontinued Medications Medication Drug Class(es) Dates Sig (Normalized) Sig (Original) methylPREDNISolone 4 mg oral tablet (3 sources) Corticosteroid Start: 3 End: 3 take 1 tablet by mouth once Methylprednisolone (Medrol (Gerardo)) 4 mg tablets,dose pack Discontinued 4 MG PO per package directions 31 01January 02, 2023 12:00am January 08, 2023 12:04am Problems Active Problems Problem Classification Problem Date Documented Da te Episodic/Chronic Diverticulosis and diverticulitis (3 sources) Diverticulitis of sigmoid colon; Translations: [Diverticulitis of large intestine without perforation or abscess without bleeding] 07-22-2021 Chronic Other screening for suspected conditions (not mental disorders or infectious disease) (1 source) Encounter for screening mammogram for malignant neoplasm of breast; Translations: [Encounter for screening mammogram for malignant neoplasm of breast] Onset: 06-27-2024 Episodic Peripheral and visceral atherosclerosis (1 source) Unspecified atherosclerosis; Translations: [Unspecified atherosclerosis] Onset: 10-23-2023 Chronic Pleurisy; pneumothorax; pulmonary collapse (2 sources) Pleurisy; Translations: [Pleurisy] 10-04-2023 Episodic Sprains and strains (4 sources) Strain of muscle and/or tendon of lower leg; Translations: [Strain of unspecified muscle and tendon at ankle and foot level, right foot, initial encounter] 01-02-2023 Episodic Viral infection (2 sources) Disease caused by 2019-nCoV; Translations: [COVID-19] 10-04-2023 Episodic Past or Other Problems Problem Classification Problem Date Documented Da te Episodic/Chronic Nonspecific chest pain (1 source) Chest pain, unspecified; Translations: [Chest pain, unspecified] Onset: 10-09-2023 Episodic Results Test Name Value Interpretation Reference Range Facility Dexa Bone Density Study Dexa Bone Density Study [facility] Imaging Services [address] [place], [place] [id number] Dexa Bone Density Study MR#: [id number] Acct: [id number] Name: KESHAV GREEN Rep #: [id number] : 1960 F 64 From: Tavo madden MD PCP: Dr. Sourav James MD Status: REG CLI Study: Dexa Bone Density Study Date of Exam: 06/03/24 Exam# [id number] Ordering Dr: Sourav James MD [id number] STUDY: DUAL ENERGY X-RAY ABSORPTIOMETRY / DXA REASON FOR EXAM: Female, 64 years old. [id number] TECHNIQUE: Bone Mineral Density (BMD) measurements of lumbar spine and bilateral hips were obtained. COMPARISON: Comparison is made with prior study June 03, 2015. FINDINGS: Lumbar Spine (L1-L4): g/cm2 (0.852) / T-score (-1.8) / Z-score (0.0) Findings are suggestive of osteopenia with a moderate fracture risk. Left Femur Total: g/cm2 (0.931) / T-score (-0.1) / Z-score (1.1) Left Femoral Neck: g/cm2 (0.741) / T-score (-1.0) / Z-score (0.5) Right Femur Total: g/cm2 (0.942) / T-score (0.0) / Z-score (1.2) Right Femoral Neck: g/cm2 (0.778) / T-score (-0.6) / Z-score (0.9) The T-Scores on the most recent prior examination were: Lumbar Spine (L1-L4): There has been worsening of bone density since the previous examination. Left Femur Total: which represents a worsening of 8.2%. Right Femur Total: which represents a worsening of 7.3%. BD/Dexa Bone Density Study IMPRESSION: The patient is considered osteopenic as outlined below according to World Atul Organization (WHO) criteria with a moderate fracture risk. There has been worsening of bone density since the previous examination. Reference Information: The T-score is the number of standard deviations above or below the standard which is normal for young adults at their peak bone mineral density. The World Health Organization (WHO) interprets the T-scores as follows: Above -1 Normal bone density Between -1 and -2.5 Osteopenia Equal to / or below -2.5 Osteoporosis As a practical clinical guideline, osteopenia may be graded as follows: Mild -1 through -1.5 Moderate -1.6 through -2.0 Severe -2.1 through -2.4 The Z-score is the number of standard deviations above or below age-matched controls. A Z-score of less than -1.5 would be considered abnormal. References: 1. NIH Osteoporosis and Related Bone Diseases www osteo.org 2. International Society for Clinical Densitometry www iscd.org 3. National Osteoporosis Foundation www nof.org Electronically Signed: Tavo Herrmann MD at 14:06 EDT Reading Location ID and State: [facility] / [place] , Service support , CC: Dr. Sourav James MD Decision Analyst: Signed Normal [facility] SCRN MAMM (CAD)W/GAYEHelen Silva n 06-03-2024 [facility]CRN M[facility] (CAD)[facility] Imaging Services [address] [place], [place] [address] SCRN MAMM (CAD)W/GAYE ARECHIGA MR#: [id number] Acct: [id number] Name: KESHAV GREEN BLANE Rep #: [id number] : 1960 F 64 From: Tavo madden MD PCP: Dr. Sourav James MD Status: [facility] Study: SCRN MAMM (CAD)W/GAYE BILAT Date of Exam: 05/14 10/06 Exam# [id number] Ordering Dr: Sourav James MD [id number] MAMMOGRAPHY - BILATERAL SCREENING REASON FOR EXAM: Female, 64 years old. Routine annual screening examination. PERTINENT HISTORY: Aunt with breast cancer. Remote right excisional breast biopsy. TECHNIQUE: Digital bilateral breast gaye (3D mammographic acquisition) in the CC and MLO projections. 2-D mediolateral oblique (MLO) and craniocaudad (CC) views of both breasts were obtained. CAD: Full Field Digital Mammography with Computer Added Detection was performed. COMPARISON: Comparison is made with prior study June 03, 2015. FINDINGS: Breast Composition: There are scattered areas of fibroglandular density. There are no dominant masses or suspicious calcifications. Stable small benign-appearing bilateral axillary lymph nodes. No other significant abnormalities are identified. There has been no significant change since the prior study. BI/SCRN MAMM (CAD)W/GAYE BILAT IMPRESSION: Stable bilateral screening mammogram. Yearly follow-up mammogram recommended. (A) ASSESSMENT CATEGORY: BIRADS Category 2: Benign. A letter regarding these results will be sent to the patient by the facility within 30 days. Approximately 10% of breast cancers are not detected by mammography. A normal mammogram should not delay biopsy of a clinically suspicious abnormality. [id number] Electronically Signed: Tavo Herrmann MD at 14:13 EDT , CC: Dr. Sourav James MD Decision Analyst: Signed Normal [facility] Basophil percentageOrdered B y: Sourav James on 10-18-2023 Cholesterol [Mass/Vol] 196 mg/dL <200 [facility] Comment on above: <200 mg/dL Desirable 200-240 mg/dL Borderline >240 mg/dL High Risk Triglyceride [Mass/Vol] 127 mg/dL <199 [facility] Comment on above: The drugs N-Acetylcy steine and Metamizole may falsely depress this assay.Serum Triglycerides Reference Interval Normal <150 mg/dL Borderline high 150 - 199 mg/dL High 200 - 499 mg/dL Very High > or = 500 mg/dL Hemoglobin A1con 10-18-2023 HbA1c (Bld) [Mass fraction] 5.7 % High 3.8-5.6 [facility] Comment on above: Order Comment: PLEAS E ADD ON TO BLOOD IN LAB, THANKS Result Comment: Norm al < 5.7 % Prediabetic 5.7 - 6.4 % Diabetic >or= 6.5 % Please note range changes. Performed By: #### L 500.4100, L501.9985 ####[facility] [address] [place], [address] Laboratory - Chemistry and C hemistry - challengeOrdered By: Sourav James on 10-18-2023 Cholesterol in HDL [Mass/Vol] 43 mg/dL >40 [facility] Comment on above: The drugs N-Acetylcy steine and Metamizole may falsely depress this assay. Reference Range HDL <40 mg/dL Low HDL Cholesterol HDL >or= 60 mg/dL High HDL Cholesterol Cholesterol in LDL [Mass/Vol] 128 mg/dL 0-130 [facility] Lipid Profileon 10-18-2023 Cholesterol [Mass/Vol] 196 mg/dL Normal 200 [facility] Comment on above: Result Comment: <200 mg/dL Desirable 200-240 mg/dL Borderline >240 mg/dL High Risk Performed By: #### L 500.4100, L501.9985 ####[facility] [address] [place], [address] Cholesterol in HDL [Mass/Vol] 43 mg/dL Normal [facility] Comment on above: Result Comment: The drugs N-Acetylcysteine and Metamizole may falsely depress this assay. Reference Range HDL <40 mg/dL Low HDL Cholesterol HDL >or= 60 mg/dL High HDL Cholesterol Performed By: #### L 500.4100, L501.9985 ####[facility] [address] [place], [address] Cholesterol in LDL [Mass/Vol] 128 mg/dL Normal 0-130 [facility] Comment on above: Performed By: #### L 500.4100, L501.9985 ####[facility] [address] [place], [address] Cholesterol in VLDL [Mass/Vol] 25 mg/dL Normal - [facility] Comment on above: Performed By: #### L 500.4100, L501.9985 ####[facility] [address] [place], [address] Triglyceride [Mass/Vol] 127 mg/dL Normal [facility] Comment on above: Result Comment: The drugs N-Acetylcysteine and Metamizole may falsely depress this assay. Serum Triglycerides Reference Interval Normal <150 mg/dL Borderline high 150 - 199 mg/dL High 200 - 499 mg/dL Very High > or = 500 mg/dL Performed By: #### L 500.4100, L501.9985 ####[facility] [address] [place], [address] No Panel InformationOrdered By: Sourav James on 10-18-2023 VLDL Cholesterol 25 mg/dL -40 [facility] Whole blood hemoglobin A1c/t otal hemoglobin ratio (mass fraction)Ordered By: Sourav James on 10-18-2023 HbA1c (Bld) [Mass fraction] 5.7 % 3.8-5.6 [facility] Comment on above: Normal < 5.7 % Predi abetic 5.7 - 6.4 % Diabetic >or= 6.5 % Please note range changes. 12 Lead EKGon 10-04-2023 12 Lead EKG [facility] Cardiovascular Services [address] [place] [address] 12 Lead EKG 10/04/23 1852 MR#: [id number] Acct: [id number] Name: KESHAV GREEN Rep #: [id number] : 1960 63 From: Luarent Woodruff MD Attending Dr: Status: DEP ER Ordering Dr: Peri Powell MD Date: 10/04/23 Location: ED Sex: F C Admitted: Test Reason : cp Blood Pressure : / mmHG Vent. Rate : 085 BPM Atrial Rate : 085 BPM P-R Int : 152 ms QRS Dur : 078 ms QT Int : 354 ms P-R-T Axes : 037 050 046 degrees QTc Int : 421 ms Normal sinus rhythm Normal ECG Confirmed by KACY SMALLWOOD, LAURENT ([id number]), editor house organ WALE SIMPSON ([id number]) on 10/05/2023 1:05:10 PM Referred By: Confirmed By:LAURENT WOODRUFF MD 10/05/23 1305 Date Laurent Woodruff MD CC: Dr. Peri Powell MD; Dr. Sourav James MD Signed Normal [facility] Absolute lymphocyte countOrd ered By: Peri Powell on 10-04-2023 Lymphocytes Auto (Unsp spec) [#/Vol] 0.37 10*3/uL 0.83-4.51 [facility] Automated lymphocyte count a s percentage of total leukocytesOrdered By: Peri Powell on 10-04-2023 Lymphocytes/100 WBC Auto (Unsp spec) 7.1 % 19-41 [facility] Basic Metabolic Profile (BMP )on 10-04-2023 BUN/CRE 22.1 RATIO High 10-20 [facility] Comment on above: Order Comment: 1 Y Performed By: #### L 501.2022, L300.8000, L100.0100, L500.2500 #### [facility] [address] [place], [address] CA,Total 9.4 mg/dL Normal 8.5-10.1 [facility] Comment on above: Order Comment: 1 Y Performed By: #### L 501.5425, L300.8000, L100.0100, L500.2500 #### [facility] [address] [place], [address] Chloride [Moles/Vol] 105 mmol/L Normal 98-[address] [facility] Comment on above: Order Comment: 1 Y Performed By: #### L 501.5425, L300.8000, L100.0100, L500.2500 #### [facility] [address] [place], [address] CO2 [Moles/Vol] 27.0 mmol/L Normal 21.0-32.0 [facility] Comment on above: Order Comment: 1 Y Performed By: #### L 501.5425, L300.8000, L100.0100, L500.2500 #### [facility] [address] [place], [address] Creatinine [Mass/Vol] 0.68 mg/dL Normal 0.55-1.02 [facility] Comment on above: Order Comment: 1 Y Result Comment: The validity of the calculated GFR GFRAA in patients over 70 years has not been determined. Clinical correlation is essential. Performed By: #### L 501.5425, L300.8000, L100.0100, L500.2500 #### [facility] [address] [place], [address] ECRCL 90.12 ml/min Normal [facility] Comment on above: Order Comment: 1 Y Performed By: #### L 501.5425, L300.8000, L100.0100, L500.2500 #### [facility] [address] [place], [address] EST GFR - AA 112 mL/min Normal >60 [facility] Comment on above: Order Comment: 1 Y Result Comment: Afri can Danish GFR Calc Performed By: #### L 501.5425, L300.8000, L100.0100, L500.2500 #### [facility] [address] [place], [address] GAP 4 Low 5-15 [facility] Comment on above: Order Comment: 1 Y Performed By: #### L 501.5425, L300.8000, L100.0100, L500.2500 #### [facility] [address] [place], [address] GFR/1.73 sq M.predicted among non-blacks MDRD (S/P/Bld) [Vol rate/Area] 93 mL/min/{1.73_m2} Normal >60 [facility] Comment on above: Order Comment: 1 Y Result Comment: Non- GFR Calc Performed By: #### L 501.5425, L300.8000, L100.0100, L500.2500 #### [facility] [address] [place], [address] Glucose [Mass/Vol] 93 mg/dL Normal 74-106 [facility] Comment on above: Order Comment: 1 Y Performed By: #### L 501.5425, L300.8000, L100.0100, L500.2500 #### [facility] [address] [place], [address] Potassium [Moles/Vol] 3.9 mmol/L Normal 3.5-5.1 [facility] Comment on above: Order Comment: 1 Y Performed By: #### L 501.5425, L300.8000, L100.0100, L500.2500 #### [facility] [address] [place], [address] Sodium [Moles/Vol] 136 mmol/L Normal 136-145 [facility] Comment on above: Order Comment: 1 Y Performed By: #### L 501.5425, L300.8000, L100.0100, L500.2500 #### [facility] [address] [place], [address] Urea nitrogen [Mass/Vol] 15 mg/dL Normal 7-18 [facility] Comment on above: Order Comment: 1 Y Performed By: #### L 501.5425, L300.8000, L100.0100, L500.2500 #### [facility] [address] [place], [place], [address] Basophil percentageOrdered B y: Peri Powell on 10-04-2023 Basophils/100 WBC (Bld) 0.2 % 0-1 [facility] Chloride [Moles/Vol] 105 mmol/L 98-[address] [facility] Eosinophils/100 WBC (Bld) 1.3 % 0-5 [facility] Glucose [Mass/Vol] 93 mg/dL 74-106 [facility] Hemoglobin (Bld) [Mass/Vol] 13.9 g/dL 12.0-15.0 [facility] Monocytes/100 WBC (Bld) 11.9 % 0-10 [facility] Neutrophils (Bld) [#/Vol] 4.1 10*3/uL 2.0-7.7 [facility] Neutrophils/100 WBC (Bld) 78.7 % 47-70 [facility] Potassium [Moles/Vol] 3.9 mmol/L 3.5-5.1 [facility] Sodium [Moles/Vol] 136 mmol/L 136-145 [facility] WBC (Bld) [#/Vol] 5.2 10*3/uL 4.4-11.0 [facility] CBC W/Diff, Automatedon - Absolute Lymph 0.37 X10 3/uL Low 0.83-4.51 [facility] Comment on above: Performed By: #### L 501.5425, L300.8000, L100.0100, L500.2500 #### [facility] [address] [place], [address] Absolute Neut 4.1 X10 3/uL Normal 2.0-7.7 [facility] Comment on above: Performed By: #### L 501.5425, L300.8000, L100.0100, L500.2500 #### [facility] [address] [place], [address] Basophils/100 WBC (Bld) 0.2 % Normal 0-1 [facility] Comment on above: Performed By: #### L 501.5425, L300.8000, L100.0100, L500.2500 #### [facility] [address] [place], [address] Eosinophils/100 WBC (Bld) 1.3 % Normal 0-5 [facility] Comment on above: Performed By: #### L 501.5425, L300.8000, L100.0100, L500.2500 #### [facility] [address] [place], [address] Erythrocyte distribution width (RBC) [Ratio] 12.4 % Normal 11.6-14.6 [facility] Comment on above: Performed By: #### L 501.5425, L300.8000, L100.0100, L500.2500 #### [facility] [address] [place], [address] Hematocrit (Bld) [Volume fraction] 42.1 % Normal 37-47 [facility] Comment on above: Performed By: #### L 501.5425, L300.8000, L100.0100, L500.2500 #### [facility] [address] [place], [address] Hemoglobin (Bld) [Mass/Vol] 13.9 g/dL Normal 12.0-15.0 [facility] Comment on above: Performed By: #### L 501.5425, L300.8000, L100.0100, L500.2500 #### [facility] [address] [place], [address] IG% 0.800 Normal 0.0-0.9 [facility] Comment on above: Result Comment: IG% - Immature Granulocytes (promyelocytes, myelocytes and metamyelocytes) > 1% indicates that a LEFT SHIFT is Present. Performed By: #### L 501.5425, L300.8000, L100.0100, L500.2500 #### [facility] [address] [place], [address] Lymphocytes/100 WBC (Bld) 7.1 % Low 19-41 [facility] Comment on above: Performed By: #### L 501.5425, L300.8000, L100.0100, L500.2500 #### [facility] [address] [place], [address] MCH (RBC) [Entitic mass] 30.1 pg Normal 27.0-32.0 [facility] Comment on above: Performed By: #### L 501.5425, L300.8000, L100.0100, L500.2500 #### [facility] [address] [place], [address] MCHC (RBC) [Mass/Vol] 33.0 g/dL Normal 32-36 [facility] Comment on above: Performed By: #### L 501.5425, L300.8000, L100.0100, L500.2500 #### [facility] [address] [place], [address] MCV (RBC) [Entitic vol] 91.1 fL Normal 81-99 [facility] Comment on above: Performed By: #### L 501.5425, L300.8000, L100.0100, L500.2500 #### [facility] [address] [place], [address] Monocytes/100 WBC (Bld) 11.9 % High 0-10 [facility] Comment on above: Performed By: #### L 501.5425, L300.8000, L100.0100, L500.2500 #### [facility] [address] [place], [address] Neutrophils/100 WBC (Bld) 78.7 % High 47-70 [facility] Comment on above: Performed By: #### L 501.5425, L300.8000, L100.0100, L500.2500 #### [facility] [address] [place], [address] Nucleated RBC (Bld) [#/Vol] 0 10*3/uL Normal 0-5 [facility] Comment on above: Performed By: #### L 501.5425, L300.8000, L100.0100, L500.2500 #### [facility] [address] [place], [address] Platelet mean volume (Bld) [Entitic vol] 10.3 fL Normal 6.2-12.0 [facility] Comment on above: Performed By: #### L 501.5425, L300.8000, L100.0100, L500.2500 #### [facility] [address] [place], [address] Platelets (Bld) [#/Vol] 180 10*3/uL Normal 150-450 [facility] Comment on above: Performed By: #### L 501.5425, L300.8000, L100.0100, L500.2500 #### [facility] [address] [place], [address] RBC (Bld) [#/Vol] 4.62 10*6/uL Normal 4.2-5.4 [facility] Comment on above: Performed By: #### L 501.5425, L300.8000, L100.0100, L500.2500 #### [facility] [address] [place], [address] RDW SD 41.0 fl Normal 35.1-43.9 [facility] Comment on above: Performed By: #### L 501.5425, L300.8000, L100.0100, L500.2500 #### [facility] [address] [place], [address] WBC (Bld) [#/Vol] 5.2 10*3/uL Normal 4.4-11.0 [facility] Comment on above: Performed By: #### L 501.5425, L300.8000, L100.0100, L500.2500 #### [facility] [address] [place], [address] CTA Chest W/WO Contraston CTA Chest W/WO Contrast [facility] Imaging Services [address] [place] [address] CTA Chest W/WO Contrast MR#: [id number] Acct: [id number] Name: KESHAV GREEN Rep #: [id number] : 1960 F 63 From: Joe Ochoa MD PCP: Dr. Sourav James MD Status: [facility] Study: CTA Chest W/WO Contrast Date of Exam: 10/04/23 Exam# [id number] Ordering Dr: Peri Powell MD [id number] STUDY: CTA CHEST REASON FOR EXAM: Female, 63 years old. CP, elevated d-dimer RADIATION DOSAGE (If Supplied By Facility): CTDIvol = ( 8.35 ) mGy, DLP = ( 304.31 ) mGycm TECHNIQUE: The examination was performed with the intravenous administration of IV 100mL Isovue-370. Post-processing of the angiographic images was performed, with multiplanar reformation and 3D reconstruction. Individualized dose optimization techniques were used for this CT. COMPARISON: None. FINDINGS: Normal enhancement of the main pulmonary artery and right and left pulmonary arteries. Normal enhancement of the bilateral peripheral pulmonary arteries. There is no demonstrated pulmonary embolism. Mild atherosclerotic change of the aorta without evidence for aneurysm. There is no demonstrated aortic dissection. Normal heart and pericardium. There is mild multivessel coronary artery calcium Normal mediastinum. Normal hilar regions. Tiny bilateral thyroid nodules Normal visualized trachea and bronchi. The lungs are well expanded. Normal pulmonary parenchyma. Normal pleura. Small bilateral axillary nodes likely benign Dorsal spine demonstrates degenerative change Nonspecific fatty infiltrated liver CT/CTA Chest W/WO Contrast IMPRESSION: ASHD without evidence for aortic aneurysm. No acute cardiopulmonary pathology. No evidence for pulmonary embolus Incidental finding of bilateral tiny thyroid nodules which may be better assessed with ultrasound if indicated Electronically Signed: Joe Ochoa MD at 20:29 [facility] [[email or web address] Reading Location ID and State: [facility] / [place] Tel , Service support , CC: Dr. Peri Powell MD; Dr. Sourav James MD Decision Analyst: Signed Normal [facility] Chest 1 View (Portable)on Chest 1 View (Portable) [facility] Imaging Services [address] [place] [address] Chest 1 View (Portable) MR#: [id number] Acct: [id number] Name: KESHAV GREEN Rep #: [id number] : 1960 F 63 From: Joe Ochoa MD PCP: Dr. Sourav James MD Status: REG ER Study: Chest 1 View (Portable) Date of Exam: 10/04/23 Exam# [id number] Ordering Dr: Peri Powell MD [id number] STUDY: X-RAY CHEST REASON FOR EXAM: Female, 63 years old. chest pain TECHNIQUE: AP portable COMPARISON: None. FINDINGS: The lungs are clear and expanded. There is no demonstrated pleural abnormality. Normal size heart. Normal mediastinum and adrianna. Normal visualized pulmonary arteries. Normal visualized aortic arch and descending thoracic aorta. Dorsal spine demonstrates mild degenerative change. Normal visualized ribs, clavicles, and shoulders. There is no demonstrated abnormality of the visualized soft tissue structures of the upper abdomen. RAD/Chest 1 View (Portable) IMPRESSION: No acute cardiopulmonary pathology Electronically Signed: Joe Ochoa MD at 19:40 EST Reading Location ID and State: [facility] / [place] Tel , Service support , CC: Dr. Peri Powell MD; Dr. Sourav James MD Decision Analyst: Signed Normal [facility] D-Dimer Quantitative (DVT/PE )on 10-04-2023 D-DIMER QUANT 1.48 FEU/ug/m Invalid Interpretation Code 0.27-0.49 [facility] Comment on above: Result Comment: D-Di luis ELEVATED (>0.49): Additional studies and clinical assessments are indicated to conclude diagnosis of: Deep Vein Thrombosis (DVT) or Pulmonary Embolism (PE) CRITICAL VALUE VERIFIED. CALLED TO LSPARR 10/04/23 Husam Wiseman. RESULTS READ BACK BY SAME . Performed By: #### L 501.5482, L300.8000, L100.0100, L500.2500 ####[facility] [id number] [facility] [place], [address] Determination of erythrocyte mean corpuscular volume (MCV)Ordered By: Peri Powell on 10-04-2023 MCV (RBC) [Entitic vol] 91.1 fL 81-99 [facility] Emergency Department Summary on 10-04-2023 Emergency Department Summary [facility] Medical Records Department [address] [place] [address] Emergency Department Summary 10/04/23 MR#: [id number] Acct: [id number] Name: KESHAV GREEN Rep #: [id number] : 1960 63 From: Peri Powell MD PCP: Dr. Sourav James MD Status:DEP ER Location: ED HPI History of Present Illness Chief Complaint: Chest Pain Informant: patient Onset/Context/Timing Onset: Today Narrative Narrative: Patient presents secondary left-sided chest pain. She reports having cold-like symptoms for the last several weeks intermittently. This afternoon she developed pinching and squeezing pain under her left breast. She states she has had intermittent shortness of breath for the last several weeks. She denies any personal history of cardiac disease but does have family history. PFSH PFSH Home Medications ciprofloxacin HCl 500 mg tablet 500 mg PO BID #20 TABLETS 07/14/21 [Rx Last Taken Unknown] hydrocodone-acetaminop hen 5-325mg 5mg-325mg 1 tab PO Q6H PRN PRN Pain 3 days #12 TABLETS 07/14/21 [Rx Last Taken Unknown] metronidazole 500 mg tablet 500 mg PO Q8H #30 tabs 07/14/21 [Rx Last Taken Unknown] ondansetron 4 mg disintegrating tablet 4 mg PO Q6H PRN PRN Nausea #15 tabs 07/14/21 [Rx Last Taken Unknown] prednisone 20 mg tablet 40 mg (2 x 20 mg) PO DAILY #8 tabs 10/04/23 [Rx Last Taken Unknown] Allergy/AdvReac Type Severity Reaction Status Date / Time aspirin Allergy Other Verified 10/04/23 18:46 meperidine HCl [From Demerol] Allergy Other Verified 10/04/23 18:46 Sulfa (Sulfonamide Allergy Hives Verified 10/04/23 18:46 Antibiotics) Surgical History History of D C Social History Smoking Status: Current every day smoker tobacco type: cigarettes substance use type: does not use ROS ROS ED Constitutional Constitutional ED: Reports fever(s) and subjective; Denies chills Eyes Eyes: Denies change in vision or discharge from eye(s) ENT ENT ED: Denies discharge from eye(s), rhinorrhea or sore throat Cardiovascular Cardiovascular: Reports chest pain; Denies palpitations Respiratory/Chest Respiratory/Chest: Reports cough and dyspnea Gastrointestinal Gastrointestinal: Denies abdominal pain, nausea or vomiting Genitourinary Genitourinary ED: Denies dysuria Musculoskeletal Musculoskeletal: Denies back pain or extremity pain Integumentary Denies Abrasions or rash Neurologic Neurologic: Denies headache(s) or weakness Allergic/Immunologic Allergic/Immunologic ED: Denies lip swelling or urticaria EXAM Physical Exam Const Vital Signs: 10/04/23 18:46 10/04/23 18:54 10/04/23 18:49 Temperature 98.2 F 98.2 F Temperature Source Temporal Temporal Pulse Rate 92 92 Respiratory Rate 22 H 22 H Respiratory Effort Short of Breath Respiratory Pattern Tachypnea Blood Pressure 142/91 H 142/91 H Blood Pressure Mean 108 108 Pulse Ox 99 99 Oxygen Delivery Method Room Air Room Air 10/04/23 19:00 10/04/23 19:46 10/04/23 20:00 Temperature Temperature Source Pulse Rate 83 Respiratory Rate 18 Respiratory Effort Respiratory Pattern Blood Pressure 111/83 H Blood Pressure Mean 92 Pulse Ox 97 97 Oxygen Delivery Method Room Air Room Air Room Air 10/04/23 21:00 10/04/23 21:00 Temperature 99.3 F H Temperature Source Oral Pulse Rate 93 113 H Respiratory Rate 27 H 17 Respiratory Effort Respiratory Pattern Blood Pressure 125/70 H 125/70 H Blood Pressure Mean 88 88 Pulse Ox 94 96 Oxygen Delivery Method Room Air Room Air Positive well nourished and well developed General Appearance ED: well developed HEENT Reports moist mucous membranes Eyes EOMs intact bilaterally Chest Wall inspection of chest normal and palpation of chest normal Resp normal respiratory effort and clear to auscultation bilaterally Cardio regular rate and regular rhythm GI soft to palpation and non-tender Extremity normal to inspection Neuro oriented x3 Psych Mood Affect: anxious Skin no rashes or lesions noted Heart Score History: Slightly/Non-Suspiciou s ECG: Normal Age: >45 - <65 years Risk Factors: No Risk Factors Troponin: Score: 1 MDM MDM MDM Narrative Medical decision making narrative: Patient placed on cisco consultant. EKG obtained to evaluate for cardiac arrhythmia/ischemia. IV line initiated. Labwork obtained to evaluate for leukocytosis, anemia, and electrolyte derangement. Chest x-ray obtained to evaluate for acute lung pathology, cardiac size, or mediastinal abnormality. Swab for COVID, influenza, and RSV obtained. Patient does have an allergy to aspirin. She is given morphine and Zofran for pain. History (more content not included)... Normal [facility] Erythrocyte distribution wid th ratioOrdered By: Peri Powell on 10-04-2023 Erythrocyte distribution width (RBC) [Ratio] 12.4 % 11.6-14.6 [facility] Erythrocyte distribution wid th standard deviationOrdered By: Peri Powell on 10-04-2023 Erythrocyte distribution width (RBC) [Entitic vol] 41.0 fL 35.1-43.9 [facility] Hematocrit Auto (Bld) [Volum e fraction]Ordered By: Peri Powell on 10-04-2023 Hematocrit (Bld) [Volume fraction] 42.1 % 37-47 [facility] Immature granulocytes/100 WB C Auto (Bld)Ordered By: Peri Powell on 10-04-2023 Immature granulocytes/100 WBC (Bld) 0.800 % 0.0-0.9 [facility] Comment on above: IG% - Immature Granu locytes (promyelocytes, myelocytes and metamyelocytes) > 1% indicates that a LEFT SHIFT is Present. L501.4020on 10-04-2023 TROPONIN-I HS 5 pg/mL Normal 3.0-54.0 [facility] Comment on above: Result Comment: Plea se Note: New Test Units and Gender Specific Reference Ranges. For more information see Policy Stat Procedure [place] High Sensitivity Troponin (TNIH) and attachments. Performed By: #### L 501.4020 #### [facility] [address] [place], [address] L501.5425on 10-04-2023 TROPONIN-I HS 3 pg/mL Normal 3.0-54.0 [facility] Comment on above: Order Comment: 1Y Result Comment: Plea se Note: New Test Units and Gender Specific Reference Ranges. For more information see Policy Stat Procedure [place] High Sensitivity Troponin (TNIH) and attachments. Performed By: #### L 501.5425, L300.8000, L100.0100, L500.2500 ####[facility] [id number] [place], [address] Laboratory - Chemistry and C hemistry - challengeOrdered By: Peri Powell on 10-04-2023 CO2 [Moles/Vol] 27.0 mmol/L 21.0-32.0 [facility] Urea nitrogen/Creatinine [Mass ratio] 22.1 mg/mg 10-20 [facility] - Hematology and Cell countsOrdered By: Peri Powell on 10-04-2023 MCH (RBC) [Entitic mass] 30.1 pg 27.0-32.0 [facility] MCHC (RBC) [Mass/Vol] 33.0 g/dL 32-36 [facility] Nucleated RBC/100 WBC (Bld) [Ratio] 0 % 0-5 [facility] Platelet mean volume (Bld) [Entitic vol] 10.3 fL 6.2-12.0 [facility] Platelets (Bld) [#/Vol] 180 10*3/uL 150-450 [facility] - Microbiology an d Antimicrobial susceptibilityOrdered By: Peri Powell on 10-04-2023 SARS-CoV-2 (COVID-19) RNA HAFSA+probe Ql (Unsp spec) SARS-CoV-2 (COVID 19) [facility] SARS-CoV-2 (COVID-19) RNA HAFSA+probe Ql (Unsp spec) SARS-CoV-2 (COVID 19) [facility] M100.678on 10-04-2023 M100.678 SARS-CoV-2 (COVID 19 ) Positive A INFLUENZA A Negative INFLUENZA B Negative RSV PCR Negative COVID Normal [facility] Comment on above: Performed By: #### M 100.678 #### [facility] [address] [place], [place], [id number] No Panel InformationOrdered By: Peri Powell on 10-04-2023 Troponin I High Sensitivity 5 pg/mL 3.0-54.0 [facility] Comment on above: Please Note: New Michelle t Units and Gender Specific Reference Ranges. For more information see Policy Stat Procedure [place] High Sensitivity Troponin (TNIH) and attachments. D-Dimer Quantitative (PE/DVT) 1.48 FEU/ug/m 0.27-0.49 [facility] Comment on above: D-Dimer ELEVATED (>0 .49): Additional studies and clinicalassessments are indicated to conclude diagnosis of:Deep Vein Thrombosis (DVT) or Pulmonary Embolism (PE)CRITICAL VALUE VERIFIED. CALLED TO RVCJKJ03/22/24 Husam Wiseman.RESULTS READ BACK BY SAME . Estimated Creatinine Clearance Calc 90.12 ml/min [facility] Estimated GFR (MDRD) Amer 112 mL/min >60 [facility] Comment on above: GFR Calc Estimated GFR (MDRD) Non-Af Amer 93 mL/min >60 [facility] Comment on above: Non- GFR Calc RBC Auto (Bld) [#/Vol]Ordere d By: Peri Powell on 10-04-2023 RBC (Bld) [#/Vol] 4.62 10*6/uL 4.2-5.4 [facility] Serum or plasma calcium syeda urement (mass/volume)Ordered By: Peri Powell on 10-04-2023 Calcium [Mass/Vol] 9.4 mg/dL 8.5-10.1 [facility] Serum or plasma creatinine m easurement (mass/volume)Ordered By: Peri Powell on 10-04-2023 Creatinine [Mass/Vol] 0.68 mg/dL 0.55-1.02 [facility] Comment on above: The validity of the calculated GFR & GFRAA in patients over 70 years has not been determined. Clinical correlation is essential. Serum or plasma urea nitroge n measurement (mass/volume)Ordered By: Peri Powell on 10-04-2023 Urea nitrogen [Mass/Vol] 15 mg/dL 7-18 [facility] Thin prep Papanicolaou smear with manual screeningOrdered By: Peri Powell on 10-04-2023 Thin prep Papanicolaou smear with manual screening 4 5-15 [facility] Vital Signs Date Time Vital Sign Value Performing Clinician Kalina lity 10-04-2023 22:16-0500 Body temperature 99.6 [degF] [facility] 10-04-2023 22:16-0500 Diastolic blood pressure 66 mm[Hg] [facility] 10-04-2023 22:16-0500 Heart rate 95 /min [facility] 10-04-2023 22:16-0500 Respiratory rate 18 /min [facility] 10-04-2023 22:16-0500 SaO2% (BldA) [Mass fraction] 95 % [facility] 10-04-2023 22:16-0500 Systolic blood pressure 118 mm[Hg] [facility] 10-04-2023 18:56-0500 Body mass index (BMI) [Ratio] 33.3 kg/m2 [facility] 10-04-2023 18:56-0500 Body weight 88.7 kg [facility] 10-04-2023 18:46-0500 Body height 162.99 cm [facility] 01-02-2023 17:06-0400 Body height 162.[address] Sourav James Work Phone: [facility] 01-02-2023 17:06-0400 Body mass index (BMI) [Ratio] 30.5 kg/m2 Dr. Sourav James Work Phone: [facility] 01-02-2023 17:06-0400 Body temperature 97.7 [degF] Dr. Sourav James Work Phone: [facility] 01-02-2023 17:06-0400 Body weight 80.[address] Sourav James Work Phone: [facility] 01-02-2023 17:06-0400 Diastolic blood pressure 80 mm[Hg] Dr. Sourav James Work Phone: [facility] 01-02-2023 17:06-0400 Heart rate 74 /min Dr. Sourav James Work Phone: [facility] 01-02-2023 17:06-0400 Respiratory rate 16 /min Dr. Sourav James Work Phone: [facility] 01-02-2023 17:06-0400 SaO2% (BldA) [Mass fraction] 97 % Dr. Sourav James Work Phone: [facility] 01-02-2023 17:06-0400 Systolic blood pressure 120 mm[Hg] Dr. Sourav James Work Phone: [facility] Encounters Encounter Date Encounter Type Care Provider Facility Start: 06-03-2024 End: 06-03-2024 ambulatory Sourav James Facility:[facility] Start: 10-18-2023 End: 10-18-2023 ambulatory [facility] Work Phone: Start: 10-18-2023 End: 10-18-2023 Patient encounter procedure [facility] [place] Work Phone: Start: 10-18-2023 End: 10-18-2023 ambulatory Sourav James Facility:[facility] Start: 10-04-2023 End: 10-04-2023 Emergency department patient visit [facility] Work Phone: Start: 01-02-2023 End: 01-02-[address] Sourav James Work Phone: [facility] Work Phone: Start: 01-02-2023 End: 01-02-[address] Sourav James Work Phone: [facility] Procedures Date Procedure Procedure Detail Performing Clinician Start: 10-04-2023 CT angiography of ch est with contrast Start: 10-04-2023 Plain chest X-ray Start: 10-04-2023 SARS-CoV-2, Influenz a & RSV (PCR) Start: 01-02-[address] Izzy James Work Phone: Plan of Treatment Date Care Activity Detail Author Start: 10-04-[address] [facility] Start: 10-04-[address] [facility] Patient Education Coronavirus Di sease 2019 (COVID-19): Overview Coronavirus Disease 2019 (COVID-19): Caring for Yourself or Others ED Pleurisy [facility] Work Phone: Patient referral [facility] Work Phone: Payers Date Payer Category Payer Private Health Insurance [id number] 2023 Self-pay [id number] 2023 Unknown [id number] Unknown [id number] Unknown [id number] Unknown [id number] Social History Date Type Detail Facility Start: 01-02-2023 End: 10-04-2023 Tobacco smoking status NHIS Unknown if ever smoked [facility] Start: 1960 Sex Assigned At Female [facility] Mental Status Date Assessment Result Facility 10-04-2023 Cognitive function Voice/Name [facility] Work Phone: Evaluation note Note Date & Type Note Facility Evaluation note Diagnosis Onset Date Right ankle strain acute [facility] Work Phone: Evaluation note Note Date & Type Note Facility Evaluation note No assessment information availa ble [facility] Work Phone: Chief Complaint and Reason for Visit Chief Complaint RIGHT FOOT/ANKLE NISHANT N EORDER- RIGHT ANKLE- Tripped over her dog Reason for Visit Right ankle strain Chief Complaint CHEST PAIN Advance Directives No Advanced Directives Records Found Advance Directive Response Recorded Date/ Time Living Will No July 14 7:42am Power of Meeting Specialist No July 14, 2021 7:42am Advance Directive Response Recorded Date/ Time Living Will No October 04 6:54pm Power of Meeting Specialist No October 04, 2023 6:54pm Advance Directive Response Recorded Date/ Time Living Will No October 04 7:54pm Power of Meeting Specialist No October 04, 2023 7:54pm Summary Purpose Family History No Family History Records Found Additional Source Comments Care Teams (unrecognized sec tion and content) Team Status: Active Member Role Status Dates Dr. Sourav James MD Family Provider Active Dr. Sourav James MD Primary Care Provider Active Team Status: Inactive Member Role Status Dates Dr. Sourav James MD Primary Care Provider, Referring Provider Active PRUDENCE Anaya Attending Provider Active Team Status: Inactive Member Role Status Dates Dr. Sourav James MD Primary Care Provider Active PRUDENCE Anaya Attending Provider, Referring Provi sukhwinder Active Team Status: Inactive Member Role Status Dates Dr. Sourav James MD Primary Care Provider Active Dr. Peri Powell MD Emergency Provider Active Team Status: Inactive Member Role Status Dates Dr. Sourav James MD Primary Care Provider Active Dr. Peri Powell MD Attending Provider, Emergency Provider Active Team Status: Inactive Member Role Status Dates Dr. Sourav James MD Primary Care Provi sukhwinder, Attending Provider, Referring Provider Active Goals (unrecognized section and content) Goals may be documented in a n alternate sectionGoals may be documented in an alternate sectionGoals may be documented in an alternate section INFORMATION SOURCE (unrecogn ized section and content) DATE CREATED AUTHOR 06/30/2024 [facility] FOR RECORDS PERTAINING TO PATIENTS WHO ARE OR HAVE BEEN ENROLLED IN A CHEMICAL DEPENDENCY/SUBSTANCEABUSE PROGRAM, SOME INFORMATION MAY BE OMITTED. This clinical summary was aggregated from multiple sources. Caution should be exercised in using it in the provision of clinical care. This summary normalizes information from multiple sources, and as a consequence, information in this document may materially change the coding, format and clinical context of patient data. In addition, data may be omitted in some cases. CLINICAL DECISIONS SHOULD BE BASED ON THE PRIMARY CLINICAL RECORDS. [employer] provides no warranty or guarantee of the accuracy or completeness of information in this document.
== END | disposition home or self-care (01) ==
LOC: MTLAB 15:10
PROVIDERS: PCP Family Medicine; Referring Provider Nurse Practitioner Family; Visit Provider Nurse Practitioner Family
DX: J06.9 Acute upper respiratory infection, unspecified (principal)
CPT/HCPCS: 87070; 87077; 87186; 87205

== ENCOUNTER → 2025-07-20 | Outpatient (CLI) | payer MEDICARE, SELFPAY ==
--- NOTE | 2025-07-20 16:39 | RAD_ITS ---
PROCEDURE: L/S SPINE MIN 4 VIEWS 07/20/2025 REASON FOR EXAM: ABDOMINAL PAIN TECHNIQUE: Procedure Code: RADSPLS Modality: DX Procedure: L/S SPINE MIN 4 VIEWS COMPARISON: None FINDINGS: The vertebral alignment is maintained. L4 mild anterior listhesis is seen. No evidence of vertebral bodies fracture. No scoliosis is seen. There is preservation of the normal lumbar lordosis. Reduced L4-5 and L5-S1 disc spaces. L4-5 and L5-S1 Facet joints arthropathy. Degenerative endplate osteophytes seen. Normal paravertebral soft tissue densities. RAD/L/S Spine Min 4 Views IMPRESSION: No evidence of lumbar vertebral fracture L4 mild anterior listhesis seen Lumbar spondylosis. [facility]
[2025-07-20 17:51] LABS: Hematocrit 46.5 % (37-47); Hemoglobin 15.8 g/dL (12.0-15.0); Immature Granulocytes Count 0.040 X10^3/uL (0.0-0.0); Mean Corp Hgb Conc 34.0 g/dL (32-36); Mean Corpuscular Volume 91.4 fL (81-99); Mean Platelet Vol. 11.0 fl (6.2-12.0); NRBC Flagged by Analyzer 0 % (0-5); Platelet Count 236 K/mm3 (150-450); RBC Distribution Width CV 11.8 % (11.6-14.6); RBC Distribution Width SD 39.5 fl (35.1-43.9); Red Blood Count 5.09 M/mm3 (4.2-5.4); White Blood Count 11.7 K/mm3 (4.4-11.0)
[2025-07-20 18:36] LABS: AST(SGOT) 19 U/L (<=31); Alanine Aminotransfer ALT/SGPT 12 U/L (<=34); Albumin, Serum 4.7 g/dL (3.4-4.8); Alkaline Phosphatase 97 U/L (35-104); Anion Gap 14 (5-15); BUN 16 mg/dL (4-19); BUN/Creat Ratio 24.5 RATIO (10-20); Calcium,Total 9.8 mg/dL (7.6-11.0); Carbon Dioxide 23.3 mmol/L (21.0-32.0); Chloride 99 mmol/L (98-108); Globulin 2.7 g/dL (2.2-4.2); Glucose 102 mg/dL (70-99); Potassium 4.0 mmol/L (3.3-5.1)
== END | disposition home or self-care (01) ==
LOC: MTLAB 16:38
PROVIDERS: PCP Family Medicine; Referring Provider Family Medicine; Visit Provider Family Medicine
DX: R10.9 Unspecified abdominal pain (principal)
CPT/HCPCS: 36415; 72110; 80053; 85025

== ENCOUNTER → 2025-07-22 | Outpatient (CLI) | payer MEDICARE, SELFPAY ==
--- NOTE | 2025-07-22 13:21 | RAD_ITS ---
PROCEDURE: ACUTE ABDOMEN INC CHEST 07/22/2025 REASON FOR EXAM: ABDOMINAL PAIN TECHNIQUE: Procedure Code: RADABDCA Modality: DX Procedure: ACUTE ABDOMEN INC CHEST COMPARISON: CTA of chest dated 10/04/2023 and chest x-ray dated 10/04/2023 FINDINGS: Heart: Heart size and configuration are within normal limits. Arteriosclerotic vascular disease of the aorta is noted. Lungs: Lungs are expanded without evidence of atelectasis, consolidation, effusion or pneumonic infiltrate. Trachea midline. Pulmonary vasculature: Unremarkable. Bowel gas: A large amount of stool and gas is present throughout a mildly distended colon. No abnormally dilated gas-filled loops of small bowel are noted. Psoas muscles and renal outlines are partially obscured by overlying bowel gas and fecal material within the colon. Free air: There is no free intraperitoneal air. Calcifications: Phleboliths are seen in the pelvis. No abnormal calcific densities are seen in the abdomen to suggest gallstone, renal stone or ureteral stone. Bones: There are degenerative changes of the spine. Other: There is no gross organomegaly. RAD/Acute Abdomen Inc Chest IMPRESSION: The patient appears to be constipated. If patient's symptoms continue or worse n, follow-up imaging is recommended. Reading Location: [id number]
--- OUTSIDE RECORDS SUMMARY | 2025-07-22 13:44 | XMS RPT_ITS | CCD ---
Author Organization [facility] Care Team Providers Care Product Managent Intern Name Role Phone Dr. Sourav James Primary Care Provider Dr. Sourav James Referring Provider PRUDENCE Moody Attending Provider Jessica FIG CAPRIFIER, Arcelia Attending Unavailable Sourav James Primary Care Unavailable Jessica SWAN, Arcelia Referring Unavailable Sourav James Referring Unavailable Sourav James Attending Unavailable Sourav James Primary Care Unavailable Dr. Sourav James MD Primary Care Physician Jessica FIG CAPRIFIER-C, Arcelia Attending Physician Jessica FIG CAPRIFIER-C, Arcelia Referring Provider Allergies Allergy Classification Reported Allergen(s) Allergy Type Date of Onset Reaction(s) Facility (4 sources) Aspirin Drug Allergy 3 [facility] (5 sources) Meperidine; Translations: [meperidine HCl] Drug Allergy 3 [facility] (4 sources) Sulfonamides (Antibiotic) Allergy to substance 3 [facility] (1 source) Aspirin Drug Allergy 4 [facility] Repository (1 source) Sulfonamides (Antibiotic) Drug allergy (disorder) 4 [facility] Repository Medications Current Medications Medication Drug Class(es) Dates Sig (Normalized) Sig (Original) acetaminophen 325 mg / HYDROcodone bitartrate 5 mg oral tablet (4 sources) Opioid Agonist Start: 07-14-2021 take 1 tablet by mouth every six hours as needed for pain Start: 07-14-2021 take 1 tablet by supa th every six hours as needed Hydrocodone-Acetaminophen Active 1 TABLE T PO EVERY 6 HOURS NEEDED 12 3 July 14, 2021 ciprofloxacin 500 mg oral tablet (4 sources) Quinolone Antimicrobial Start: 07-14-2021 take 1 tablet by mouth twice daily metroNIDAZOLE 500 mg oral tablet (4 sources) Nitroimidazole Antimicrobial Start: 07-14-2021 take 1 tablet by mouth every eight hours ondansetron 4 mg disintegrating oral tablet (4 sources) Serotonin-3 Receptor Antagonist Start: 07-14-2021 take 1 tablet by mouth every six hours as needed for nausea predniSONE 20 mg oral tablet (3 sources) Start: 10-04-2023 take 2 tablets by mouth once daily Start: 10-04-2023 take 40 mg by mouth once daily Prednisone Active 40 MG PO DAILY October 04, 2023 1:00am Completed/Discontinued Medications Medication Drug Class(es) Dates Sig (Normalized) Sig (Original) methylPREDNISolone 4 mg oral tablet (4 sources) Corticosteroid Start: End: take 1 tablet by mouth once Methylprednisolone (Medrol (Gerardo)) 4 mg tablets,dose pack Discontinued 4 mg PO per package directions 21 6 0 January 02, 2023 12:00am January 07, 2023 12:00am January 08, 2023 12:04am Problems Active Problems Problem Classification Problem Date Documented Date Episodic/Chronic Diverticulosis and diverticulitis (4 sources) Diverticulitis of sigmoid colon; Translations: [Diverticulitis of large intestine without perforation or abscess without bleeding] 07-22-2021 Chronic Other upper respiratory infections (1 source) Acute upper respiratory infection, unspecified; Translations: [Acute upper respiratory infection, unspecified] Onset: 05-14-2025 Episodic Pleurisy; pneumothorax; pulmonary collapse (3 sources) Pleurisy; Translations: [Pleurisy] 10-04-2023 Episodic Sprains and strains (5 sources) Strain of muscle and/or tendon of lower leg; Translations: [Strain of unspecified muscle and tendon at ankle and foot level, right foot, initial encounter] 01-02-2023 Episodic Viral infection (3 sources) Disease caused by 2019-nCoV; Translations: [COVID-19] 10-04-2023 Episodic Past or Other Problems Problem Classification Problem Date Documented Da te Episodic/Chronic Other screening for suspected conditions (not mental disorders or infectious disease) (1 source) Encounter for screening mammogram for malignant neoplasm of breast; Translations: [Encounter for screening mammogram for malignant neoplasm of breast] Onset: 06-27-2024 Episodic Results Test Name Value Interpretation Reference Range Facility Respiratory Cultureon 2024 RESPC Order Date: 05/06/25 Order Info: 624-7 - CUSPUTUM Klebsiella pneumoniae sp pneum Amount Growth 2+ Presumptive C albicans Amount Growth 1+ Klebsiella pneumoniae sp pneum: REACTION Ampicillin Islt LIBBY >=32 R Ampicillin+Sulbac Islt LIBBY 4 S Cefepime Islt LIBBY <=0.12 S cefTRIAXone Islt LIBBY <=0.25 S Ciprofloxacin Islt LIBBY <=0.06 S B-Lactamase Extended Susc Islt NEG Gentamicin Islt LIBBY <=1 S levoFLOXacin Islt LIBBY <=0.12 S Meropenem Islt LIBBY <=0.25 S Pip+Tazo Islt LIBBY <=4 S TMP SMX Islt LIBBY <=20 S Normal [facility] Comment on above: Performed By: #### M 100.1999, M100.2400 #### [facility] Laboratory [address] [place], [place], [id number] Gram Stainon 05-07-2025 GS Order Date: 05/06/25 Order Info: 624-7 - CUSPUTUM Acceptable Specimen? Yes (<25 Epithelial cells per/lpf) Gram Stain 1+ Gram positive cocci in chains 1+ Epithelial cells Rare White Blood Cells Normal [facility] Comment on above: Performed By: #### M 100.1999, M100.2400 #### [facility] [address] [place], [place], [address] Gram stainOrdered By: Arcelia beltran on 05-06-2025 Microscopic observation Gram stain Nom (Unsp spec) [facility] Microbial respiratory cultur eOrdered By: Arcelia Lopez on 05-06-2025 Microorganism identified Cx Nom (Unsp spec) Klebsiella pneumoniae sp pneum Abnormal [facility] Microorganism identified Cx Nom (Unsp spec) Presumptive C albicans Abnormal [facility] Dexa Bone Density Studyon Dexa Bone Density Study [facility] Imaging Services [address] [place], [place] [id number] Dexa Bone Density Study MR#: [id number] Acct: [id number] Name: KESHAV GREEN Rep #: [id number] : 1960 F 64 From: Tavo madden MD PCP: Dr. Sourav James MD Status: REG CLI Study: Dexa Bone Density Study Date of Exam: 06/03/24 Exam# [id number] Ordering Dr: Sourav James MD [id number] STUDY: DUAL ENERGY X-RAY ABSORPTIOMETRY / DXA [...] Signed: Tavo Herrmann MD at 14:06 EDT , CC: Dr. Sourav James MD Dye Room Helper: Signed Normal [facility] SCRN MAMM (CAD)W/GAYE BILATo n 06-03-2024 SCRN MAMM (CAD)W/GAYE BILAT [facility] Imaging Services [address] [place], [place] [address] SCRN MAMM (CAD)W/GAYE BILAT MR#: [id number] Acct: [id number] Name: KESHAV GREEN Rep #: [id number] : 1960 F 64 From: Tavo madden MD PCP: Dr. Sourav James MD Status: [facility] Study: SCRN MAMM (CAD)W/GAYE BILAT Date of Exam: 05/14 10/06 Exam# [id number] Ordering Dr: Sourav James [place] [id number] MAMMOGRAPHY - BILATERAL SCREENING REASON FOR EXAM: [...] delay biopsy of a clinically suspicious abnormality. [id number] Electronically Signed: Tavo Herrmann MD at 14:13 EDT , CC: Dr. Sourav James MD Dye Room Helper: Signed Normal [facility] Basophil percentageOrdered B y: Sourav James on 10-18-2023 Cholesterol [Mass/Vol] 196 mg/dL <200 [facility] Comment on above: <200 mg/dL Desirable 200-240 mg/dL Borderline >240 mg/dL High Risk Triglyceride [Mass/Vol] 127 mg/dL <199 [facility] Comment on above: The drugs N-Acetylcy steine and Metamizole may falsely depress this assay.Serum Triglycerides Reference Interval Normal <150 mg/dL Borderline high 150 - 199 mg/dL High 200 - 499 mg/dL Very High > or = 500 mg/dL Laboratory - Chemistry and C hemistry - challengeOrdered By: Sourav James on 10-18-2023 Cholesterol in HDL [Mass/Vol] 43 mg/dL >40 [facility] Comment on above: The drugs N-Acetylcy steine and Metamizole may falsely depress this assay. Reference Range HDL <40 mg/dL Low HDL Cholesterol HDL >or= 60 mg/dL High HDL Cholesterol Cholesterol in LDL [Mass/Vol] 128 mg/dL 0-130 [facility] No Panel InformationOrdered By: Sourav James on 10-18-2023 VLDL Cholesterol 25 mg/dL 5-40 [facility] Whole blood hemoglobin A1c/t otal hemoglobin ratio (mass fraction)Ordered By: Sourav James on 10-18-2023 HbA1c (Bld) [Mass fraction] 5.7 % 3.8-5.6 [facility] Comment on above: Normal < 5.7 % Predi abetic 5.7 - 6.4 % Diabetic >or= 6.5 % Please note range changes. Absolute lymphocyte countOrd ered By: Peri Powell on 10-04-2023 Lymphocytes Auto (Unsp spec) [#/Vol] 0.37 10*3/uL 0.83-4.51 [facility] Automated lymphocyte count a s percentage of total leukocytesOrdered By: Peri Powell on 10-04-2023 Lymphocytes/100 WBC Auto (Unsp spec) 7.1 % 19-41 [facility] Basophil percentageOrdered B y: Peri Powell on 10-04-2023 Basophils/100 WBC (Bld) 0.2 % 0-1 [facility] Chloride [Moles/Vol] 105 mmol/L 98-107 [facility] Eosinophils/100 WBC (Bld) 1.3 % 0-5 [facility] Glucose [Mass/Vol] 93 mg/dL 74-106 [facility] Hemoglobin (Bld) [Mass/Vol] 13.9 g/dL 12.0-15.0 [facility] Monocytes/100 WBC (Bld) 11.9 % 0-10 [facility] Neutrophils (Bld) [#/Vol] 4.1 10*3/uL 2.0-7.7 [facility] Neutrophils/100 WBC (Bld) 78.7 % 47-70 [facility] Potassium [Moles/Vol] 3.9 mmol/L 3.5-5.1 [facility] Sodium [Moles/Vol] 136 mmol/L 136-145 [facility] WBC (Bld) [#/Vol] 5.2 10*3/uL 4.4-11.0 [facility] Determination of erythrocyte mean corpuscular volume (MCV)Ordered By: Peri Powell on 10-04-2023 MCV (RBC) [Entitic vol] 91.1 fL 81-99 [facility] Erythrocyte distribution wid th ratioOrdered By: Peri Powell on 10-04-2023 Erythrocyte distribution width (RBC) [Ratio] 12.4 % 11.6-14.6 [facility] Erythrocyte distribution wid th standard deviationOrdered By: Peri Powell on 10-04-2023 Erythrocyte distribution width (RBC) [Entitic vol] 41.0 fL 35.1-43.9 [facility] Hematocrit Auto (Bld) [Volum e fraction]Ordered By: Peri Powell on 10-04-2023 Hematocrit (Bld) [Volume fraction] 42.1 % 37-47 [facility] Immature granulocytes/100 WB C Auto (Bld)Ordered By: Peri Powell on 10-04-2023 Immature granulocytes/100 WBC (Bld) 0.800 % 0.0-0.9 [facility] Comment on above: IG% - Immature Granu locytes (promyelocytes, myelocytes and metamyelocytes) > 1% indicates that a LEFT SHIFT is Present. Laboratory - Chemistry and C hemistry - challengeOrdered By: Peri Powell on 10-04-2023 CO2 [Moles/Vol] 27.0 mmol/L 21.0-32.0 [facility] Urea nitrogen/Creatinine [Mass ratio] 22.1 mg/mg 10-20 [facility] Laboratory - Hematology and Cell countsOrdered By: Peri Powell on 10-04-2023 MCH (RBC) [Entitic mass] 30.1 pg 27.0-32.0 [facility] MCHC (RBC) [Mass/Vol] 33.0 g/dL 32-36 [facility] Nucleated RBC/100 WBC (Bld) [Ratio] 0 % 0-5 [facility] Platelet mean volume (Bld) [Entitic vol] 10.3 fL 6.2-12.0 [facility] Platelets (Bld) [#/Vol] 180 10*3/uL 150-450 [facility] Laboratory - Microbiology an d Antimicrobial susceptibilityOrdered By: Peri Powell on 10-04-2023 SARS-CoV-2 (COVID-19) RNA HAFSA+probe Ql (Unsp spec) SARS-CoV-2 (COVID 19) [facility] SARS-CoV-2 (COVID-19) RNA HAFSA+probe Ql (Unsp spec) SARS-CoV-2 (COVID 19) [facility] No Panel InformationOrdered By: Peri Powell on 10-04-2023 Troponin I High Sensitivity 5 pg/mL 3.0-54.0 [facility] Comment on above: Please Note: New Michelle t Units and Gender Specific Reference Ranges. For more information see Policy Stat Procedure [place] High Sensitivity Troponin (TNIH) and attachments. D-Dimer Quantitative (PE/DVT) 1.48 FEU/ug/m 0.27-0.49 [facility] Comment on above: D-Dimer ELEVATED (>0 .49): Additional studies and clinicalassessments are indicated to conclude diagnosis of:Deep Vein Thrombosis (DVT) or Pulmonary Embolism (PE)CRITICAL VALUE VERIFIED. CALLED TO [id number]/24 Husam Wiseman.RESULTS READ BACK BY SAME . Estimated Creatinine Clearance Calc 90.12 ml/min [facility] Estimated GFR (MDRD) Amer 112 mL/min >60 [facility] Comment on above: GFR Calc Estimated GFR (MDRD) Non-Af Amer 93 mL/min >60 [facility] Comment on above: Non- GFR Calc RBC Auto (Bld) [#/Vol]Ordere d By: Peri Powell on 10-04-2023 RBC (Bld) [#/Vol] 4.62 10*6/uL 4.2-5.4 [facility] Serum or plasma calcium syeda urement (mass/volume)Ordered By: Peir Powell on 10-04-2023 Calcium [Mass/Vol] 9.4 mg/dL 8.5-10.1 [facility] Serum or plasma creatinine m easurement (mass/volume)Ordered [...] 10-04-2023 Urea nitrogen [Mass/Vol] 15 mg/dL 7-18 [facility] Thin prep Papanicolaou smear with manual screeningOrdered By: Peri Powell on 10-04-2023 Thin prep Papanicolaou smear with manual screening 4 -15 [facility] Vital Signs Date Time Vital Sign Value Performing Clinician Kalina guerra 10-04-2023 22:16-0500 Body temperature 99.6 [degF] [facility] 10-04-2023 22:16-0500 Diastolic blood pressure 66 mm[Hg] [facility] 10-04-2023 22:16-0500 Heart rate 95 /min [facility] 10-04-2023 22:16-0500 Respiratory rate 18 /min [facility] 10-04-2023 22:16-0500 SaO2% (BldA) [Mass fraction] 95 % [facility] 10-04-2023 22:16-0500 Systolic blood pressure 118 mm[Hg] [facility] 10-04-2023 18:56-0500 Body mass index (BMI) [Ratio] 33.3 kg/m2 [facility] 10-04-2023 18:56-0500 Body weight 88.7 kg [facility] 10-04-2023 18:46-0500 Body height 162.99 cm [facility] 01-02-2023 17:06-0400 Body height 162.[address] Sourav James Work Phone: [facility] 01-02-2023 17:06-0400 Body mass index (BMI) [Ratio] 30.5 kg/m2 Dr. Sourav James Work Phone: [facility] 01-02-2023 17:06-0400 Body temperature 97.7 [degF] Dr. Sourav James Work Phone: [facility] 01-02-2023 17:06-0400 Body weight 80.[address] Sourav James Work Phone: [facility] 01-02-2023 17:06-0400 Diastolic blood pressure 80 mm[Hg] Dr. Sourav James Work Phone: [facility] 01-02-2023 17:06-0400 Heart rate 74 /min Dr. Sourav James Work Phone: [facility] 01-02-2023 17:06-0400 Respiratory rate 16 /min Dr. Sourav James Work Phone: [facility] 01-02-2023 17:06-0400 SaO2% (BldA) [Mass fraction] 97 % Dr. Sourav James Work Phone: [facility] 01-02-2023 17:06-0400 Systolic blood pressure 120 mm[Hg] Dr. Sourav James Work Phone: [facility] Encounters Encounter Date Encounter Type Care Provider Facility Start: 05-06-2025 End: 05-06-[address] Sourav James MD Work Phone: -[facility] [place] Start: 05-06-2025 End: 05-06-2025 Patient encounter procedure Arcelia FULTON -[facility] [place] Work Phone: Start: 05-06-2025 End: 05-06-2025 ambulatory Arcelia Lopez NP Facility:[facility] Start: 06-03-2024 End: 06-03-2024 ambulatory Sourav James Facility:[facility] Start: 10-18-2023 End: 10-18-2023 ambulatory [facility] Work Phone: Start: 10-18-2023 End: 10-18-2023 Patient encounter procedure [facility]-Labor[facility], [place] Work Phone: Start: 10-04-2023 End: 10-04-2023 Emergency department patient visit [facility]-Emergency Department Work Phone: Start: 01-02-2023 End: 01-02-[address] Sourav James Work Phone: [facility] Work Phone: Start: 01-02-2023 End: 01-02-[address] Sourav James Work Phone: [facility] Procedures Date Procedure Procedure Detail Performing Clinician Start: 05-06-2025 Bacteria identificat ion test Dr. Sourav James MD Work Phone: Start: 05-06-2025 Gram stain microscopy D carlos James MD Work Phone: Start: 05-06-2025 [address] micro[address] l culture Dr. Sourav James MD Work Phone: Start: 10-04-2023 CT angiography of ch est with contrast Start: 10-04-2023 Plain chest X-ray Start: 10-04-2023 SARS-CoV-2, Influenz a & RSV (PCR) Start: 01-02-[address] Izzy James Work Phone: Plan of Treatment Date Care Activity Detail Author Start: 10-04-2023 [facility] Start: 10-04-2023 [facility] Patient Education Coronavirus Di sease 2019 (COVID-19): Overview Coronavirus Disease 2019 (COVID-19): Caring for Yourself or Others ED Pleurisy [facility] Work Phone: Patient referral [facility] Work Phone: Payers Date Payer Category Payer Private Health Insurance [id number] 2024 Self-pay [id number] Private Health Insurance [id number] Unknown [id number] Unknown [id number] Unknown [id number] Social History Date Type Detail Facility Start: 01-02-2023 End: 10-04-2023 Tobacco smoking status CAIS Unknown if ever smoked [facility] Start: 1960 Sex Assigned At Female [facility] Start: 10-04-2023 Tobacco smoking stat us CAIS Smokes tobacco daily (finding) [facility] Sex Female [facility] Mental Status Date Assessment Result Facility 10-04-2023 Cognitive function Voice/Name [facility] Work Phone: Evaluation note Note Date & Type Note Facility Evaluation note Diagnosis Onset Date Right ankle strain acute [facility] Work Phone: Evaluation note Note Date & Type Note Facility Evaluation note No assessment information availa ble [facility] Work Phone: Reason for referral (narrative) Note Date & Type Note Facility Reason for referral (narrative) No reason for referral information available [facility] Work Phone: Chief Complaint and Reason for Visit Chief Complaint RIGHT FOOT/ANKLE NISHANT N EORDER- RIGHT ANKLE- Tripped over her dog Reason for Visit Right ankle strain Chief Complaint CHEST PAIN Chief Complaint Admit Date EORDER- SPUTUM May 06, 2025 3:09pm Advance Directives Advance Directive Response Recorded Date/ Time Living Will No July 14 7:42am Power of Odd Bundle Worker No July 14, 2021 7:42am Advance Directive Response Recorded Date/ Time Living Will No October 04 6:54pm Power of Odd Bundle Worker No October 04, 2023 6:54pm Advance Directive Response Recorded Date/ Time Living Will No October 04 7:54pm Power of Odd Bundle Worker No October 04, 2023 7:54pm Summary Purpose [...] Provi sukhwinder, Attending Provider, Referring Provider Active Team Status: Active Member Role/Relationship Status Dates Dr. Sourav James MD Primary care physician Active Team Status: Inactive Member Role/Relationship Status Dates Dr. Sourav James MD Primary care physician Active Start: May 06, 2025 End: May 06, 2025 Arcelia Lopez NP FIG CAPRIFIER-C Attending physician Active Start: May 06, 2025 End: May 06, 2025 Arcelia Lopez NP, NP-Nathaniel Referring Provider Active S tart: May 06, 2025 End: May 06, 2025 Goals (unrecognized section and content) Goals may be documented in a n alternate sectionGoals may be documented in an alternate sectionGoals may be documented in an alternate sectionGoals may be documented in an alternate section INFORMATION SOURCE (unrecogn ized section and content) DATE CREATED AUTHOR 05/15/2025 [facility] FOR RECORDS PERTAINING TO PATIENTS WHO ARE [...] BE BASED ON THE PRIMARY CLINICAL RECORDS. [facility]. provides no warranty or guarantee of the accuracy or completeness of information in this document.
== END | disposition home or self-care (01) ==
LOC: MTRAD 13:21
PROVIDERS: PCP Family Medicine; Referring Provider Family Medicine; Visit Provider Family Medicine
DX: R10.9 Unspecified abdominal pain (principal)
CPT/HCPCS: 74022

== ENCOUNTER → 2025-08-03 | Outpatient (CLI) | payer MEDICARE, SELFPAY ==
--- NOTE | 2025-08-03 18:10 | CT_ITS ---
PROCEDURE: ABDOMEN/PELVIS WITH CONTRAST 08/03/2025 REASON FOR EXAM: ABDOMINAL PAIN TECHNIQUE: Procedure Code: [id number] Modality: CT Procedure: ABDOMEN/PELVIS WITH CONTRAST Contiguous axial scans of 2.5 mm slice thicknesses. Sagittal and coronal reconstruction images were obtained. One or more dose reduction techniques were used (e.g., automated exposure control, adjustment of mA and/or kv according to patient size, use of iterative reconstruction technique). CONTRAST: Isovue-300 VOLUME: 93 mL One or more dose reduction techniques were used (e.g., Automated exposure control, adjustment of the mA and/or kV according to patient size, use of iterative reconstruction technique. RADIATION DOSE SUMMARY: CTDlvol: 32.47 mGy DLP: 923.91 mGycm COMPARISON: CT abdomen and pelvis dated 07/14/2021. FINDINGS: Lung bases: No abnormalities. Liver: Normal-size and attenuation. No masses. No biliary ductal dilatation. Gallbladder: No gallstones. No wall thickening or pericholecystic edema. Spleen: Normal in size and attenuation.. Pancreas: No masses or ductal dilatation. Adrenals: No nodules are gland thickening. Kidneys: Symmetrical excretion of contrast. Suspicion of a tiny 0.6 cm cyst in the lower pole, right kidney. Small 0.9 cm cyst, left kidney. No calcifications. Normal-size. Bladder: Unremarkable. Reproductive Organs: Unremarkable. Normal-size uterus. Bowel: Large amount of fecal debris is demonstrated throughout the colon. Marked thickening of the proximal to mid sigmoid colon wall with associated luminal narrowing. Mild pericolonic fat stranding is seen on axial image 78. Appendix: Unremarkable. Lymph nodes: No suspicious lymphadenopathy. Vasculature: Mild atherosclerotic calcific disease of the aortoiliac arteries. Peritoneum / Retroperitoneum: No free air. No masses. No free fluid. Anterior abdominal wall: Unremarkable. Bones: Grade 1 anterolisthesis of L4 on L5. Mild spondylosis of the thoracic spine. CT/Abdomen/Pelvis WITH Contrast IMPRESSION: 1. Area of wall thickening involving the proximal and mid sigmoid colon with l uminal narrowing and mild Katie colonic fat stranding indicating inflammation. Can not exclude developing diverticulitis. 2. Small subcentimeter cysts in both kidneys. 3. Grade 1 anterolisthesis, L4 on L5 also noted on the prior study. 4. Other nonacute findings detailed above. Reading Location: [place] [address]
== END | disposition home or self-care (01) ==
LOC: CT 18:00
PROVIDERS: PCP Family Medicine; Referring Provider Family Medicine; Visit Provider Family Medicine
DX: R10.9 Unspecified abdominal pain (principal)
CPT/HCPCS: 74177; Q9967